=== PATIENT | female | born 1945 | race Caucasian/White ===

== ENCOUNTER → 2016-11-17 | Day surgery (SDC) | payer MEDICARE, OTHER ==
[~2016-11-17] MED LIST: BENZOCAINE ONE 20% MUCOSAL SPRAY.; FEBU80TA2 PO; FURO-68 PO; LEVO137T2 PO; LIDOCAINE 2% TOPICAL JELLY 30GM TUBE. TP ONE; LIDOCAINE 2% VISCOUS 15 ML SOLUTION. ONE; MAG355OR11 PO; MODA200T31 PO; OMEP20CA9 PO; OXYC10TA45 PO; OXYC5CAP PO; PRAV40TA2 PO; ROPI1TAB PO; SPIR50TA2 PO; TRAM50TA PO
[2016-11-17 16:13] VITALS: BP 126/79
--- NOTE | 2016-11-18 00:32 | CONS ---
DATE OF CONSULTATION: 11/17/2016 REASON FOR CONSULTATION: Pickett's. HISTORY OF PRESENT ILLNESS: A 71-year-old female with past medical history of hyperlipidemia, hypertension, and Pickett's and regional enteritis as well as hypothyroidism is seen for surveillance exam for Pickett's. She denies any dysphagia, odynophagia and has had no further bleeding, has been maintained on omeprazole 20 mg daily. PAST MEDICAL HISTORY: Osteoarthrosis, hyperlipidemia, hypertension, myositis, anemia, Pickett's, and Crohn's. ALLERGIES: None. MEDICATIONS: Include Uloric, Lasix, Synthroid, Maalox, Provigil, omeprazole, oxycodone, pravastatin, Requip, spironolactone, and tramadol. SOCIAL HISTORY: She is retired. She does not drink or smoke at this time. FAMILY HISTORY: Noncontributory. PAST SURGICAL HISTORY: Status post tonsillectomy. REVIEW OF SYSTEMS: Per records. PHYSICAL EXAMINATION: VITAL SIGNS: Temperature: She is afebrile, pulse 90, respiratory rate 20. HEENT: Normocephalic and atraumatic. Pupils and extraocular muscles not tested. Sclerae anicteric. NECK: Supple. LUNGS: Clear. CARDIOVASCULAR: Reveals S1, S2 without S3, S4 or appreciable murmur. ABDOMEN: Reveals a soft abdomen, normal bowel sounds, without appreciable splenomegaly. EXTREMITIES: Reveals no cyanosis, clubbing or edema. IMPRESSION: Pickett's surveillance exam is recommended at this time. Risks and benefits of procedure including risk of perforation of the operation were discussed with patient and he is willing to proceed at this time. I thank Nasir Santos for allowing us to consult and participate in the patient's care. PURNIMA GREEN MD DR: ROGELIO/martin JOB#: [id number] / [id number] NASIR Gonzalez
--- NOTE | 2016-11-19 10:25 | PATHOLOGY ---
PATHOLOGY REPORT * * * * * * * * FINAL DIAGNOSIS: Squamous mucosa "distal esophageal biopsy": - Reactive squamous epithelial hyperplasia consistent with esophagitis. - There is no evidence of goblet cell metaplasia, dysplasia or malignancy. ([facility]; 11/19/2016) REPORT ELECTRONICALLY SIGNED BY: Brock Interiano M.D. DATE/TIME: 11/19/2016 10:24 * * * * * * * * GROSS PATHOLOGY: Received in formalin labeled "Jenny Shelby, distal esophagus biopsies," are multiple segments of royal soft tissue measuring from less than 0.1 up to 0.2 cm in maximum dimension. The specimen is submitted entirely in cassette A1. ([facility]; 11/18/16) INITIAL CPT CODE(S): A; 53068 Professional services performed by [facility] [place] [address] Technical services performed by [facility] at [address] [place] [address]. SPECIMEN(S) RECEIVED: A.Distal esophagus biopsy CLINICAL HISTORY: History of Pickett's PATIENT: JENNY SHELBY /AGE: 6 1945 (Age: 71) PATIENT #: [id number] ALT CASE #: SPECIMEN COLLECTION DATE: 11/17/2016 SPECIMEN RECEIVED DATE: 11/18/2016 [facility] - [address] [place] [address] - PHONE: [phone] * * * END OF REPORT * * *
== END | disposition home or self-care (01) ==
LOC: SURG 14:58
PROVIDERS: ATTEND Internal Medicine Gastroenterology
DX: Z87.39 Personal history of other diseases of the musculoskeletal system and connective tissue (principal); K22.70 Barrett's esophagus without dysplasia; I10 Essential (primary) hypertension; K29.50 Unspecified chronic gastritis without bleeding; D64.9 Anemia, unspecified; Z86.69 Personal history of other diseases of the nervous system and sense organs
CPT/HCPCS: 88305

== ENCOUNTER 2018-12-07 15:28 | Inpatient (IN) | payer MEDICARE, OTHER ==
[~2018-12-07] VITALS: Ht 162.6 cm; Wt 134.7 kg
[2018-12-07] VITALS (7 sets, daily range): BP systolic 98–143; BP diastolic 40–83
[~2018-12-07 15:28] MED LIST changes: -BENZOCAINE ONE 20% MUCOSAL SPRAY.; -LIDOCAINE 2% TOPICAL JELLY 30GM TUBE. TP ONE; -LIDOCAINE 2% VISCOUS 15 ML SOLUTION. ONE; +OMEP20CA10 PO; -OMEP20CA9 PO; -OXYC10TA45 PO; +OXYC10TA46 PO; -SPIR50TA2 PO; +SPIR50TA4 PO
[2018-12-07] MEDS ORDERED: MORPHINE SULFATE 4 MG/ML VIAL. IV ONE (15:45)
--- NOTE | 2018-12-07 16:07 | PHYS DOC ---
Past Medical History Past Medical History: Diabetes-Type II, Hypertension Past Surgical History: Tonsillectomy Alcohol Use: None Drug Use: None Adult General Chief Complaint Chief Complaint: TRAUMA ALERT HPI HPI Patient is a 73-year-old female who presents to the emergency department for evaluation. She states she was trying to get into her van, and she slipped when she was getting into her seat, and injured her right ankle. She sustained what appears to be an open fracture, EMS reports that there was significant deformity to the patient's ankle, they gave her about 4 mg of Versed to reposition her and splint her. She states her tetanus is up-to-date. She denies any numbness or weakness. She has a large defect and laceration over the medial aspect of her ankle. She denies any other painful areas or injuries. Palpation and attempted movement worsens her pain. There are no alleviating factors to her symptoms. She did not feel dizzy or lightheaded, and the fall seemed to be mechanical reasons, as the patient lost her balance trying to get into her automobile seat. Review of Systems Review of Systems Constitutional: Denies fever or chills [] Eyes: Denies change in visual acuity, redness, or eye pain [] HENT: Denies nasal congestion or sore throat [] Respiratory: Denies cough or shortness of breath [] Cardiovascular: The patient denies any shortness of breath, chest pain, palpitations, or orthopnea [] GI: Denies abdominal pain, nausea, vomiting, bloody stools or diarrhea [] : Denies dysuria or hematuria [] Musculoskeletal: Denies back pain or joint pain except the right ankle [] Integument: Denies rash or skin lesions [] Neurologic: Denies headache, focal weakness or sensory changes [] Endocrine: Denies polyuria or polydipsia [] All other systems were reviewed and found to be within normal limits, except as documented in this note. Current Medications Current Medications Current Medications Medications (Trade) Dose Ordered Sig/Aury Start Time Stop Time Status Last Admin Dose Admin Cefazolin Sodium 50 ml @ 100 mls/hr 1X ONCE 12/07/18 15:45 12/07/18 16:14 DC 12/07/18 16:30 100 MLS/HR Fentanyl Citrate (Fentanyl 2ml Vial) 50 mcg 1X ONCE 12/07/18 16:45 12/07/18 16:46 Hydromorphone HCl (Dilaudid) 0.5 mg PRN Q10MIN PRN 12/07/18 16:30 12/07/18 22:00 Insulin Human Regular (HumuLIN R VIAL) 5 unit 1X ONCE 12/07/18 16:45 12/07/18 16:46 Morphine Sulfate (Morphine Sulfate) 1 mg PRN Q10MIN PRN 12/07/18 16:30 12/07/18 22:00 Ondansetron HCl (Zofran) 4 mg PRN Q6HRS PRN 12/07/18 16:30 12/07/18 22:00 Prochlorperazine Edisylate (Compazine) 5 mg PACU PRN PRN 12/07/18 16:30 12/07/18 22:00 Ringer's Solution 1,000 ml @ 30 mls/hr Q24H 12/07/18 16:25 12/08/18 04:24 Sodium Chloride 1,000 ml @ 125 mls/hr 1X ONCE 12/07/18 16:30 12/08/18 00:29 Allergies Allergies Allergies Coded Allergies Type Severity Reaction Last Updated Verified No Known Drug Allergies 11/17/16 No Physical Exam Physical Exam Constitutional: Well developed, well nourished, no acute distress, non-toxic appearance. [] HENT: Normocephalic, atraumatic, bilateral external ears normal, oropharynx moist, no oral exudates, nose normal. [] Eyes: PERRLA, EOMI, conjunctiva normal, no discharge. [] Neck: Normal range of motion, no tenderness, supple, no stridor. [] Cardiovascular:Heart rate regular rhythm, no murmur [] Lungs & Thorax: Bilateral breath sounds clear to auscultation [] Abdomen: Bowel sounds normal, soft, no tenderness, no masses, no pulsatile masses. [] Skin: Warm, dry, no erythema, no rash. [] Back: No tenderness, no CVA tenderness. [] Extremities: No tenderness, no cyanosis, no clubbing, ROM intact, no edema. [] Neurologic: Alert and oriented X 3, normal motor function, normal sensory function, no focal deficits noted. [] Psychologic: Affect normal, judgement normal, mood normal. [] Current Patient Data Vital Signs Vital Signs Date Time Temp Pulse Resp B/P (MAP) Pulse Ox O2 Delivery O2 Flow Rate FiO2 12/07/18 15:59 92 14 Nasal Cannula 2.0 12/07/18 15:40 98.2 106/52 (70) 93 98.2 Lab Values Laboratory Tests Test 12/07/18 16:00 White Blood Count 11.1 x10^3/uL (4.0-11.0) H Red Blood Count 3.82 x10^6/uL (3.50-5.40) Hemoglobin 11.5 g/dL (12.0-15.5) L Hematocrit 34.5 % (36.0-47.0) L Mean Corpuscular Volume 90 fL (79-100) Mean Corpuscular Hemoglobin 30 pg (25-35) Mean Corpuscular Hemoglobin Concent 33 g/dL (31-37) Red Cell Distribution Width 13.2 % (11.5-14.5) Platelet Count 216 x10^3/uL (140-400) Neutrophils (%) (Auto) 87 % (31-73) H Lymphocytes (%) (Auto) 7 % (24-48) L Monocytes (%) (Auto) 6 % (0-9) Eosinophils (%) (Auto) 1 % (0-3) Basophils (%) (Auto) 0 % (0-3) Neutrophils # (Auto) 9.6 x10^3/uL (1.8-7.7) H Lymphocytes # (Auto) 0.7 x10^3/uL (1.0-4.8) L Monocytes # (Auto) 0.6 x10^3/uL (0.0-1.1) Eosinophils # (Auto) 0.1 x10^3/uL (0.0-0.7) Basophils # (Auto) 0.0 x10^3/uL (0.0-0.2) Segmented Neutrophils % 81 % (35-66) H Band Neutrophils % 9 % (0-9) Lymphocytes % 5 % (24-48) L Monocytes % 4 % (0-10) Basophils % 1 % (0-3) Platelet Estimate Adequate (ADEQUATE) Large Platelets Few Giant Platelets Occ Prothrombin Time 13.4 SEC (11.7-14.0) Prothrombin Time INR 1.1 (0.8-1.1) Activated Partial Thromboplast Time 30 SEC (24-38) Sodium Level 138 mmol/L (136-145) Potassium Level 5.6 mmol/L (3.5-5.1) H Chloride Level 99 mmol/L (98-107) Carbon Dioxide Level 27 mmol/L (21-32) Anion Gap 12 (6-14) Blood Urea Nitrogen 54 mg/dL (7-20) H Creatinine 1.8 mg/dL (0.6-1.0) H Estimated GFR (Cockcroft-Gault) 27.5 Glucose Level 305 mg/dL (70-99) H Calcium Level 9.5 mg/dL (8.5-10.1) Laboratory Tests 12/07/18 16:00 Laboratory Tests 12/07/18 16:00 EKG EKG []Normal sinus rhythm with a normal rate, normal axis, normal intervals, there are no acute ischemic ST/T changes. Radiology/Procedures Radiology/Procedures []PROCEDURE: ANKLE RIGHT 2V EXAM: Right ankle, 2 views. HISTORY: Fall. Pain. COMPARISON: None. FINDINGS: 2 views of the left ankle are obtained. There is a displaced distal fibular metaphyseal fracture with approximately one half of a shaft width displacement along the fracture line. There is slight deformity of the posterior malleolus, projectional or due to a healed fracture. There is a corticated ossicle inferior to the medial malleolus which may be due to a chronic nonunited fracture fragment. The ankle mortise appears intact. No osteochondral lesion is seen. There is diffuse ankle soft tissue swelling. IMPRESSION: 1. Displaced distal fibular metaphyseal fracture. 2. Suspected chronic nonunited fracture fragment inferior to the medial malleolus. Possible healed posterior malleolar fracture. 2. Diffuse ankle soft tissue swelling. PROCEDURE: TIBIA FIBULA RIGHT 2 view study of the right tibia and fibula Clinical indications: Fall and pain FINDINGS: The distal tibia and fibula are not seen in the AP projection. This area is visualized on the right ankle series. Fracture of the distal right fibula is seen on the ankle series. See that report. The mortise ankle joint appears widened in the lateral view. No lytic process is seen. IMPRESSION: Fracture of distal right fibula seen on the ankle series. See that report. No fracture of the more proximal tibia or fibula is seen. Course & Med Decision Making Course & Med Decision Making Pertinent Labs and Imaging studies reviewed. (See chart for details) []4:30 PM: Patient's condition remains stable. I spoke with Dr. Vance, orthopedics, was evaluated the patient will take her to the operating room. According to EMS, the patient's ankle was greatly deformed after the fall when they picked her up, I suspect that she had an open fracture with protrusion of her joint space to the large wound that is present. She will be treated as an open fracture. The patient will be taken to the operating room this evening, the hospitalist has been contacted and will admit the patient. Dragon Disclaimer Dragon Disclaimer This electronic medical record was generated, in whole or in part, using a voice recognition dictation system. Departure Departure Impression: Primary Impression: Open fracture dislocation of ankle joint Disposition: ADMITTED INPATIENT Admitting Physician: REG Condition: STABLE Referrals: LIAT REILLY (PCP) ROB MANRIQUEZ MD Dec 07, 2018 16:07
[2018-12-07 16:11] LABS: BASO % 0 % (0-3); EOS # 0.1 x10^3/uL (0.0-0.7); EOS % 1 % (0-3); HEMATOCRIT 34.5 % (36.0-47.0); HEMOGLOBIN 11.5 g/dL (12.0-15.5); LYMPH # 0.7 x10^3/uL (1.0-4.8); LYMPH % 7 % (24-48); MEAN CORPUSCULAR HEMOGLOBIN 30 pg (25-35); MEAN CORPUSCULAR HGB CONC 33 g/dL (31-37); MEAN CORPUSCULAR VOLUME 90 fL (79-100); MONO # 0.6 x10^3/uL (0.0-1.1); MONO % 6 % (0-9); NEUT # 9.6 x10^3/uL (1.8-7.7); NEUT % 87 % (31-73); PLATELET COUNT 216 x10^3/uL (140-400); RED BLOOD COUNT 3.82 x10^6/uL (3.50-5.40); RED CELL DISTRIBUTION WIDTH 13.2 % (11.5-14.5); WHITE BLOOD COUNT 11.1 x10^3/uL (4.0-11.0)
[2018-12-07] MEDS ORDERED: IV RINGERS,LACTATED 1000ML 1,000 ML IV SCH (16:25)
[2018-12-07 16:27] LABS: PROTHROMBIN TIME PATIENT 13.4 SEC (11.7-14.0)
[2018-12-07 16:29] LABS: CALCIUM 9.5 mg/dL (8.5-10.1); CREATININE 1.8 mg/dL (0.6-1.0); GFR 27.5; POTASSIUM 5.6 mmol/L (3.5-5.1)
[2018-12-07] MEDS ORDERED: HYDROmorphone 2 MG/ML VIAL IV PRN (16:30)
[2018-12-07] MEDS ORDERED: IV NORMAL SALINE 1000ML BAG 1,000 ML IV ONE (16:30)
[2018-12-07] MEDS ORDERED: MORPHINE SULFATE 2 MG/ML VIAL. IV PRN (16:30)
[2018-12-07] MEDS ORDERED: fentaNYL PF VIAL 100 MCG/2 ML VIAL IV PRN ×2 (16:30)
[2018-12-07] MEDS ORDERED: PROCHLORPERAZINE 10 MG/2 ML VIAL. IV PRN (16:30)
[2018-12-07] MEDS ORDERED: ONDANSETRON PF 4 MG/2 ML VIAL. IV PRN (16:30)
[2018-12-07 16:40] LABS: % BANDS 9 % (0-9); % BASOS 1 % (0-3); % LYMPHS 5 % (24-48); % MONOS 4 % (0-10); % SEGS 81 % (35-66)
[2018-12-07 16:42] LABS: PLT ESTIMATE ADEQUATE (ADEQUATE)
[2018-12-07] MEDS ORDERED: fentaNYL PF VIAL 100 MCG/2 ML VIAL IV ONE (16:45)
[2018-12-07] MEDS ORDERED: INSULIN REGULAR 100 UNIT/ML 3ML VIAL. IV ONE (16:45)
[2018-12-07] MEDS ORDERED: INSULIN LISPRO 100 UNIT/ML 3ML VIAL for OP,RR ONLY. SQ PRN (19:00)
[2018-12-07] MEDS ORDERED: fentaNYL PF VIAL 100 MCG/2 ML VIAL ONE (19:17)
[2018-12-07] MEDS ORDERED: ceFAZolin SODIUM 1 GM VIAL ONE (19:43)
[2018-12-07] MEDS ORDERED: PHENYLEPHRINE 10 MG/ML VIAL. ONE ×2 (20:03)
[2018-12-07] MEDS ORDERED: LIDOCAINE 2% PF 5 ML VIAL. ONE (20:17)
[2018-12-07] MEDS ORDERED: SEVOFLURANE > 120 MINUTES. IH ONE (20:17)
[2018-12-07] MEDS ORDERED: ONDANSETRON PF 4 MG/2 ML VIAL. ONE (20:17)
[2018-12-07] MEDS ORDERED: PROPOFOL 20 ML IV ONE (20:17)
[2018-12-07] MEDS ORDERED: DEXAMETHASONE SOD PHOS 4 MG/ML VIAL ONE (20:17)
--- NOTE | 2018-12-07 22:12 | PDOC4 ---
Operative Note Operative Note Date of surgery: 12/07/2018 Preoperative diagnosis: Open right ankle fracture dislocation Postoperative diagnosis: Same Operative procedure: Irrigation debridement right ankle with fixation lateral malleolus fracture Surgeon: Rajiv Assist: Daysi Anesthesia: Gen. Estimated blood loss: 150 mL Complications: None Operative indications: Please see my emergency Department orthopedic consultation for detailed operative indications Operative text: Patient was identified procedure verified patient placed in the supine position on the operating table. After adequate amounts of general anesthesia were administered the right lower extremity was prepped and draped in standard sterile fashion with a thigh tourniquet. After timeout was performed patient procedure identified and verified it was not inflated and the ankle was opened up through the medial incision and thorough irrigation carried out with normal saline solution and pulse lavage with a total of 1 L bleeding points were controlled by electrocautery and any intervening tissue and deltoid ligament were held aside with the ankle reduced lateral incision was made subperiosteal dissection carried out to the distal fibula which was anatomically reduced and fixated with a Nuris alps plate. Shaft screw was initially placed as were distal locking screws the length and positioning checked under multiple fluoroscopic views and remaining shaft screws were placed with nonlocking screws and anatomic reduction of the ankle joint mortise was noted deltoid ligament was reapproximated with Vicryl suture medial closure accomplished with nylon suture lateral closure accomplished with buried Vicryl suture and skin closure with albert sterile dressings followed by a well-padded sugar tong splint was applied and patient was returned recovery room in stable condition having tolerated procedure well BILL ALEXIS MD Dec 07, 2018 22:12
[2018-12-08] VITALS (9 sets, daily range): BP systolic 90–113; BP diastolic 37–64
[2018-12-08] MEDS: MORPHINE SULFATE 2 MG/ML VIAL. IV PRN ×5 (00:11→23:50)
--- NOTE | 2018-12-08 01:07 | CONS ---
DATE OF CONSULTATION: 12/07/2018 REQUESTING PHYSICIAN: Dr. Longoria. REASON FOR CONSULTATION: Open right ankle fracture dislocation. HISTORY OF PRESENT ILLNESS: The patient is a 73-year-old female who was trying to get into her van, slipped while she was getting into her seat, twisted her right ankle and fell to the ground. Her then tried to help her, but could not lift her up and noticed her bone sticking out of the skin at her ankle and the foot was twisted sideways. She was splinted by EMS and was noted to have a large skin wound over the medial aspect of her ankle. PAST MEDICAL HISTORY: Significant for type 2 diabetes and hypertension. PAST SURGICAL HISTORY: Tonsillectomy. MEDICATIONS: List is reviewed. ALLERGIES: She has no known drug allergies. FAMILY HISTORY: Noncontributory. SOCIAL HISTORY: Had some difficulty getting around prior to this and has a power wheelchair, otherwise ambulated with some assistance, but with increasing difficulty recently. She denies tobacco, alcohol or drug use. REVIEW OF SYSTEMS: No loss of consciousness associated with the fall. No neck or back pain, upper extremity injury, but obvious deformity to the right ankle and denies any focal weakness, numbness, tingling otherwise. PHYSICAL EXAMINATION: VITAL SIGNS: Temperature 98.2, pulse 92, respirations 14, blood pressure 106/52, 93% on 2 liters nasal cannula. HEENT: Atraumatic, normocephalic. HEART: Regular rate and rhythm. LUNGS: Clear to auscultation bilaterally. ABDOMEN: Benign, obese. EXTREMITIES: Examination of the right ankle reveals a large transverse wound over the medial aspect of her ankle and obvious fracture dislocation with gross instability. She has, otherwise, mildly limited motion of the left ankle. Normal alignment, stability of bilateral hips and knees. She can move both shoulders, elbow and wrist bilaterally well with no tenderness on palpation, weakness or instability. Distal sensation, pulses, motor function appear to be intact in both lower extremities. IMAGING: X-rays show a distal fibula fracture with obvious instability and widening of the ankle joint mortise on the right ankle. IMPRESSION: Open right ankle fracture dislocation. TREATMENT PLAN: I went over with her and her the fact that we would undergo emergent washout and fixation of her fibula to stabilize the ankle. Talked about the possibility of increased incidence of infection, stiffness, potentially instability, nerve or blood vessel damage, medical or other anesthetic complications among others and difficulty healing, especially in an increased rate with her diabetes. All her questions were answered. She wishes to proceed with surgical evaluation and treatment, which will again occur emergently this evening. BILL ALEXIS MD DR: JONATHAN/martin JOB#: [id number] / [id number]
[2018-12-08] MEDS ORDERED: FINA5TAB4 PO (02:32)
[2018-12-08] MEDS ORDERED: GLIM2TAB3 PO (02:32)
[2018-12-08] MEDS ORDERED: RAMI5CAP50 PO (02:32)
[2018-12-08] MEDS ORDERED: GABA300C18 PO (02:32)
[2018-12-08] MEDS ORDERED: METF500T16 PO (02:32)
--- NOTE | 2018-12-08 07:39 | EKG ---
[facility] [address] [place] [address] Test Date: 2018-12-07 Test Time: 16:38:14 Pat Name: SWATHI WOODALL Department: Room: 402 1 Gender: F [place]: : 1945 Requested By: ROB MANRIQUEZ Order Number: [id number] Reading MD: Jax Stanley MD Measurements Intervals [place] Rate: 92 P: -12 PA: 164 QRS: 24 QRSD: 74 T: 30 QT: 330 QTc: 413 Interpretive Statements SINUS RHYTHM Electronically Signed On 12-19-2018 14:05:15 CDT by Jax Stanley MD
[2018-12-08] MEDS ORDERED: fentaNYL PF VIAL 100 MCG/2 ML VIAL IV PRN (08:30)
[2018-12-08] MEDS ORDERED: metFORMIN 500 MG TABLET PO PRN (08:30)
[2018-12-08] MEDS ORDERED: IV DEXTROSE 5% 250 ML BAG. IV PRN (08:30)
[2018-12-08] MEDS ORDERED: DEXTROSE 50% 25 GM / 50ML DISP.SYRIN. IV PRN (08:30)
[2018-12-08] MEDS ORDERED: NON FORMULARY ITEM (Spironolactone 1 TAB) PO SCH (09:00)
[2018-12-08] MEDS ORDERED: NON FORMULARY ITEM (Modafinil (Provigil) 200 MG) PO SCH (09:00)
[2018-12-08] MEDS ORDERED: GABAPENTIN 300 MG CAPSULE. PO SCH (09:00)
[2018-12-08] MEDS ORDERED: FLU VAX QS 2019-20 (36MOS+)/PF 0.5 ML SYRINGE. VAX IM ONE (09:00)
[2018-12-08] MEDS ORDERED: RAMIPRIL PO SCH (09:00)
[2018-12-08] MEDS ORDERED: metFORMIN 500 MG TABLET PO SCH (09:15)
[2018-12-08] MEDS: LEVOTHYROXINE 137 MCG TABLET PO SCH (09:20)
[2018-12-08] MEDS: FUROSEMIDE 40 MG TABLET. PO SCH (09:21)
[2018-12-08] MEDS: GLIMEPIRIDE 2 MG TABLET. PO SCH (09:21)
[2018-12-08] MEDS: FINASTERIDE 5 MG TABLET. PO SCH (09:21)
[2018-12-08] MEDS: oxyCODONE ER 10 MG TAB.ER.12H PO SCH ×2 (09:22→21:35)
[2018-12-08 09:27] LABS: BASO % 0 % (0-3); EOS % 0 % (0-3); HEMATOCRIT 30.6 % (36.0-47.0); HEMOGLOBIN 10.3 g/dL (12.0-15.5); LYMPH # 0.7 x10^3/uL (1.0-4.8); LYMPH % 7 % (24-48); MEAN CORPUSCULAR HEMOGLOBIN 31 pg (25-35); MEAN CORPUSCULAR HGB CONC 34 g/dL (31-37); MEAN CORPUSCULAR VOLUME 92 fL (79-100); MONO # 0.5 x10^3/uL (0.0-1.1); MONO % 6 % (0-9); NEUT # 7.8 x10^3/uL (1.8-7.7); NEUT % 86 % (31-73); PLATELET COUNT 187 x10^3/uL (140-400); RED BLOOD COUNT 3.33 x10^6/uL (3.50-5.40); RED CELL DISTRIBUTION WIDTH 13.4 % (11.5-14.5); WHITE BLOOD COUNT 9.1 x10^3/uL (4.0-11.0)
[2018-12-08] MEDS ORDERED: INSULIN LISPRO 300 UNITS/3 ML VIAL. SQ ONE (09:30)
[2018-12-08 09:36] LABS: CALCIUM 8.8 mg/dL (8.5-10.1); CREATININE 1.7 mg/dL (0.6-1.0); GFR 29.4; POTASSIUM 5.8 mmol/L (3.5-5.1)
[2018-12-08] MEDS: FEBUXOSTAT 40 MG TABLET PO SCH (10:00)
--- NOTE | 2018-12-08 11:51 | PDOC1 ---
History and Physical Date of Admission Date of Admission DATE: 12/08/18 TIME: 11:47 Identification/Chief Complaint Chief Complaint Right ankle fracture, open Source Source: Caregiver, Chart review, Patient History of Present Illness History of Present Illness The patient is a 73-year-old female who was trying to get into her van, slipped while she was getting into her seat, twisted her right ankle and fell to the ground. Her then tried to help her, but could not lift her up and noticed her bone sticking out of the skin at her ankle and the foot was twisted sideways. She was splinted by EMS DR Mcdowell has done OR yesterday and i sse pt POD # 1, BS on high side on metformin BID with hgba1c 7 she relays She is interested in rehab Past Medical History Cardiovascular: HTN Endocrine: Diabetes Past Surgical History Past Surgical History: Tonsillectomy Family History Family History: Hypertension Social History Smoke: No ALCOHOL: none Drugs: None Current Problem List Problem List Problems Medical Problems: (1) Open fracture dislocation of ankle joint Status: Acute Current Medications Current Medications Current Medications Morphine Sulfate (Morphine Sulfate) 4 mg 1X ONCE IV ; Start 12/07/18 at 15:45; Stop 12/07/18 at 15:49; Status DC Cefazolin Sodium 50 ml @ 100 mls/hr 1X ONCE IV Last administered on 12/07/18at 16:30; Start 12/07/18 at 15:45; Stop 12/07/18 at 16:14; Status DC Ondansetron HCl (Zofran) 4 mg PRN Q6HRS PRN IV NAUSEA/VOMITING; Start 12/07/18 at 16:30; Stop 12/07/18 at 22:00; Status DC Fentanyl Citrate (Fentanyl 2ml Vial) 25 mcg PRN Q5MIN PRN IV MILD PAIN 1-3; Start 12/07/18 at 16:30; Stop 12/07/18 at 22:00; Status DC Fentanyl Citrate (Fentanyl 2ml Vial) 50 mcg PRN Q5MIN PRN IV MODERATE TO SEVERE PAIN; Start 12/07/18 at 16:30; Stop 12/07/18 at 22:00; Status DC Morphine Sulfate (Morphine Sulfate) 1 mg PRN Q10MIN PRN IV SEVERE PAIN 7-10; Start 12/07/18 at 16:30; Stop 12/07/18 at 22:00; Status DC Ringer's Solution 1,000 ml @ 30 mls/hr Q24H IV ; Start 12/07/18 at 16:25; Stop 12/08/18 at 04:24; Status DC Hydromorphone HCl (Dilaudid) 0.5 mg PRN Q10MIN PRN IV SEV PAIN, Second choice; Start 12/07/18 at 16:30; Stop 12/07/18 at 22:00; Status DC Prochlorperazine Edisylate (Compazine) 5 mg PACU PRN PRN IV NAUSEA, MRX1; Start 12/07/18 at 16:30; Stop 12/07/18 at 22:00; Status DC Sodium Chloride 1,000 ml @ 125 mls/hr 1X ONCE IV Last administered on 12/07/18at 16:47; Start 12/07/18 at 16:30; Stop 12/08/18 at 00:29; Status DC Insulin Human Regular (HumuLIN R VIAL) 5 unit 1X ONCE IV Last administered on 12/07/18at 16:46; Start 12/07/18 at 16:45; Stop 12/07/18 at 16:46; Status DC Fentanyl Citrate (Fentanyl 2ml Vial) 50 mcg 1X ONCE IV Last administered on 12/07/18at 16:43; Start 12/07/18 at 16:45; Stop 12/07/18 at 16:46; Status DC Insulin Human Lispro (HumaLOG VIAL for OP,RR ONLY) 0-10 units PRN Q1HR PRN SQ PER PROTOCOL Last administered on 12/07/18at 18:57; Start 12/07/18 at 19:00; Sto p 12/08/18 at 18:59 Cefazolin Sodium 50 ml @ 100 mls/hr 1X PREOP ONCE IV ; Start 12/07/18 at 19:15; Stop 12/07/18 at 19:44; Status DC Fentanyl Citrate (Fentanyl 2ml Vial) 100 mcg STK-MED ONCE .ROUTE ; Start 12/07/18 at 19:17; Stop 12/07/18 at 19:17; Status DC Cefazolin Sodium (Ancef) 1 gm STK-MED ONCE .ROUTE ; Start 12/07/18 at 19:43; Stop 12/07/18 at 19:43; Status DC Phenylephrine HCl (Dex-Synephrine Inj) 10 mg STK-MED ONCE .ROUTE ; Start 12/07/18 at 20:03; Stop 12/07/18 at 20:03; Status DC Phenylephrine HCl (Dex-Synephrine Inj) 10 mg STK-MED ONCE .ROUTE ; Start 12/07/18 at 20:03; Stop 12/07/18 at 20:03; Status DC Propofol 20 ml @ As Directed STK-MED ONCE IV ; Start 12/07/18 at 20:17; Stop 12/07/18 at 20:17; Status DC Dexamethasone Sodium Phosphate (Decadron) 4 mg STK-MED ONCE .ROUTE ; Start 12/07/18 at 20:17; Stop 12/07/18 at 20:17; Status DC Lidocaine HCl (Lidocaine Pf 2% Vial) 5 ml STK-MED ONCE .ROUTE ; Start 12/07/18 at 20:17; Stop 12/07/18 at 20:17; Status DC Ondansetron HCl (Zofran) 4 mg STK-MED ONCE .ROUTE ; Start 12/07/18 at 20:17; Stop 12/07/18 at 20:17; Status DC Sevoflurane (Ultane) 90 ml STK-MED ONCE IH ; Start 12/07/18 at 20:17; Stop 12/07/18 at 20:18; Status DC Morphine Sulfate (Morphine Sulfate) 2 mg PRN Q2HR PRN IV MODERATE PAIN 4-6 Last administered on 12/08/18at 00:11; Start 12/07/18 at 23:45 Morphine Sulfate (Morphine Sulfate) 4 mg PRN Q2HR PRN IV SEVERE PAIN 7-10 Last administered on 12/08/18at 07:13; Start 12/07/18 at 23:45 Influenza Virus Vaccine Quadrival (Afluria Quad 2019-20 (3yr Up) Syringe) 0.5 ml ONCE ONCE VAX IM Last administered on 12/08/18at 09:26; Start 12/08/18 at 09:00; Stop 12/08/18 at 09:05; Status DC Fentanyl Citrate (Fentanyl 2ml Vial) 50 mcg PRN Q2HR PRN IV MODERATE TO SEVERE PAIN; Start 12/08/18 at 08:30 Oxycodone/ Acetaminophen (Percocet 5/325) 1 tab PRN Q4HRS PRN PO MODERATE TO SEVERE PAIN; Start 12/08/18 at 08:30 Insulin Human Lispro (HumaLOG) 0-9 UNITS TIDWMEALS SQ ; Start 12/08/18 at 12:00 Dextrose (Dextrose 50%-Water Syringe) 12.5 gm PRN Q15MIN PRN IV SEE COMMENTS; Start 12/08/18 at 08:30 Dextrose 250 ml PRN Q15MIN PRN IV SEE COMMENTS; Start 12/08/18 at 08:30; Status UNV Finasteride (Proscar) 5 mg DAILY PO Last administered on 12/08/18at 09:21; Start 12/08/18 at 09:00 Furosemide (Lasix) 40 mg DAILY PO Last administered on 12/08/18at 09:21; Start 12/08/18 at 09:00 Gabapentin (Neurontin) 300 mg TID PO Last administered on 12/08/18at 09:21; Start 12/08/18 at 09:00 Glimepiride (Amaryl) 2 mg DAILY PO Last administered on 12/08/18at 09:21; Start 12/08/18 at 09:00 Levothyroxine Sodium (Synthroid) 137 mcg DAILY06 PO Last administered on 12/08/18at 09:20; Start 12/08/18 at 10:30 Metformin HCl (Glucophage) 500 mg BID PRN PO Diabetes Mellitus; Start 12/08/18 at 08:30; Stop 12/08/18 at 09:06; Status DC Oxycodone HCl (OxyCONTIN) 10 mg BID PO Last administered on 12/08/18at 09:22; Start 12/08/18 at 10:00 Ropinirole HCl (Requip) 1 mg QHS PO ; Start 12/08/18 at 21:00 Tramadol HCl (Ultram) 50 mg PRN Q6HRS PRN PO MILD TO MODERATE PAIN; Start 12/08/18 at 08:30 Febuxostat (Uloric) 40 mg DAILY PO ; Start 12/08/18 at 10:00 Non-Formulary Medication (Modafinil (Provigil)) 200 mg DAILY PO ; Start 12/08/18 at 09:00; Stop 12/08/18 at 09:16; Status DC Pantoprazole Sodium (Protonix) 40 mg DAILYAC PO ; Start 12/08/18 at 11:30 Atorvastatin Calcium (Lipitor) 10 mg QHS PO ; Start 12/08/18 at 21:00 Non-Formulary Medication (Ramipril ) 1 cap DAILY PO ; Start 12/08/18 at 09:00; Stop 12/08/18 at 08:25; Status DC Non-Formulary Medication (Spironolactone ) 1 tab DAILY PO ; Start 12/08/18 at 09:00; Stop 12/08/18 at 08:25; Status DC Metformin HCl (Glucophage) 500 mg BIDWMEALS PO ; Start 12/08/18 at 09:15; Status Cancel Insulin Human Lispro (HumaLOG) 20 units 1X ONCE SQ Last administered on 12/08/18at 09:30; Start 12/08/18 at 09:30; Stop 12/08/18 at 09:35; Status DC Active Scripts Active Reported Glimepiride 2 Mg Tablet 1 Tab PO DAILY Finasteride 5 Mg Tablet 5 Mg PO DAILY Gabapentin 300 Mg Capsule 300 Mg PO TID Ramipril 5 Mg Capsule 1 Cap PO DAILY Metformin Hcl 500 Mg Tablet 500 Mg PO BID PRN Maalox Advanced Suspension (Mag Hydrox/Aluminum Hyd/Simeth) 355 Ml Oral.susp 355 Ml PO Provigil (Modafinil) 200 Mg Tablet 200 Mg PO DAILY Requip (Ropinirole Hcl) 1 Mg Tablet 1 Tab PO QHS Pravastatin Sodium 40 Mg Tablet 1 Tab PO QHS Uloric (Febuxostat) 80 Mg Tablet 1 Tab PO DAILY Oxycontin (Oxycodone HCl) 10 Mg Tab.er.12h 10 Mg PO BID Oxycodone Hcl 5 Mg Capsule 1 Cap PO TID Spironolactone 50 Mg Tablet 1 Tab PO DAILY Lasix (Furosemide) 40 Mg Tablet 1 Tab PO DAILY Synthroid (Levothyroxine Sodium) 137 Mcg Tablet 1 Tab PO DAILY Tramadol Hcl 50 Mg Tablet 1 Tab PO PRN Q6HRS Omeprazole 20 Mg Capsule.dr 1 Cap PO DAILY Allergies Allergies: Coded Allergies: No Known Drug Allergies (Unverified , 12/07/18) ROS Review of System Right ankle postop soreness otherwise rest of ROS 14 point negative Physical Exam General: Alert, Oriented X3, Cooperative, No acute distress HEENT: Atraumatic, PERRLA, EOMI Lungs: Clear to auscultation, Normal air movement Heart: S1S2, RRR, no thrills, no rubs, no gallops, no murmurs Cardiovascular: S1, S2 Breasts: Normal, Rt breast nml w/o mass, Lt breast nml w/o mass, Nipples normal Abdomen: Normal bowel sounds, Soft, No tenderness, No hepatosplenomegaly, No masses Rectal Exam: not examined Extremities: No clubbing, No cyanosis, Normal pulses, Other (right ankle dressing/soft cast) Skin: No rashes, No breakdown Neuro: Normal gait, Normal speech, Strength at 5/5 X4 ext, Normal tone, Sensa tion intact, Cranial nerves 3-12 NL, Reflexes 2+ Psych/Mental Status: Mental status NL, Mood NL Vitals Vitals Vital Signs Date Time Temp Pulse Resp B/P (MAP) Pulse Ox O2 Delivery O2 Flow Rate FiO2 12/08/18 10:52 97.5 80 20 90/48 (62) 91 Nasal Cannula 2.0 97.5 Labs Labs Laboratory Tests Test 12/07/18 16:00 12/07/18 18:50 12/07/18 20:58 12/08/18 08:13 White Blood Count 11.1 x10^3/uL (4.0-11.0) Red Blood Count 3.82 x10^6/uL (3.50-5.40) Hemoglobin 11.5 g/dL (12.0-15.5) Hematocrit 34.5 % (36.0-47.0) Mean Corpuscular Volume 90 fL (79-100) Mean Corpuscular Hemoglobin 30 pg (25-35) Mean Corpuscular Hemoglobin Concent 33 g/dL (31-37) Red Cell Distribution Width 13.2 % (11.5-14.5) Platelet Count 216 x10^3/uL (140-400) Neutrophils (%) (Auto) 87 % (31-73) Lymphocytes (%) (Auto) 7 % (24-48) Monocytes (%) (Auto) 6 % (0-9) Eosinophils (%) (Auto) 1 % (0-3) Basophils (%) (Auto) 0 % (0-3) Neutrophils # (Auto) 9.6 x10^3/uL (1.8-7.7) Lymphocytes # (Auto) 0.7 x10^3/uL (1.0-4.8) Monocytes # (Auto) 0.6 x10^3/uL (0.0-1.1) Eosinophils # (Auto) 0.1 x10^3/uL (0.0-0.7) Basophils # (Auto) 0.0 x10^3/uL (0.0-0.2) Segmented Neutrophils % 81 % (35-66) Band Neutrophils % 9 % (0-9) Lymphocytes % 5 % (24-48) Monocytes % 4 % (0-10) Basophils % 1 % (0-3) Platelet Estimate Adequate (ADEQUATE) Large Platelets Few Giant Platelets Occ Prothrombin Time 13.4 SEC (11.7-14.0) Prothromb Time International Ratio 1.1 (0.8-1.1) Activated Partial Thromboplast Time 30 SEC (24-38) Sodium Level 138 mmol/L (136-145) Potassium Level 5.6 mmol/L (3.5-5.1) Chloride Level 99 mmol/L (98-107) Carbon Dioxide Level 27 mmol/L (21-32) Anion Gap 12 (6-14) Blood Urea Nitrogen 54 mg/dL (7-20) Creatinine 1.8 mg/dL (0.6-1.0) Estimated GFR (Cockcroft-Gault) 27.5 Glucose Level 305 mg/dL (70-99) Calcium Level 9.5 mg/dL (8.5-10.1) Glucose (Fingerstick) 229 mg/dL (70-99) 178 mg/dL (70-99) 410 mg/dL (70-99) Test 12/08/18 09:15 White Blood Count 9.1 x10^3/uL (4.0-11.0) Red Blood Count 3.33 x10^6/uL (3.50-5.40) Hemoglobin 10.3 g/dL (12.0-15.5) Hematocrit 30.6 % (36.0-47.0) Mean Corpuscular Volume 92 fL (79-100) Mean Corpuscular Hemoglobin 31 pg (25-35) Mean Corpuscular Hemoglobin Concent 34 g/dL (31-37) Red Cell Distribution Width 13.4 % (11.5-14.5) Platelet Count 187 x10^3/uL (140-400) Neutrophils (%) (Auto) 86 % (31-73) Lymphocytes (%) (Auto) 7 % (24-48) Monocytes (%) (Auto) 6 % (0-9) Eosinophils (%) (Auto) 0 % (0-3) Basophils (%) (Auto) 0 % (0-3) Neutrophils # (Auto) 7.8 x10^3/uL (1.8-7.7) Lymphocytes # (Auto) 0.7 x10^3/uL (1.0-4.8) Monocytes # (Auto) 0.5 x10^3/uL (0.0-1.1) Eosinophils # (Auto) 0.0 x10^3/uL (0.0-0.7) Basophils # (Auto) 0.0 x10^3/uL (0.0-0.2) Sodium Level 135 mmol/L (136-145) Potassium Level 5.8 mmol/L (3.5-5.1) Chloride Level 99 mmol/L (98-107) Carbon Dioxide Level 28 mmol/L (21-32) Anion Gap 8 (6-14) Blood Urea Nitrogen 55 mg/dL (7-20) Creatinine 1.7 mg/dL (0.6-1.0) Estimated GFR (Cockcroft-Gault) 29.4 Glucose Level 459 mg/dL (70-99) Calcium Level 8.8 mg/dL (8.5-10.1) 25-Hydroxy Vitamin D Total 47.2 ng/mL (30-100) Laboratory Tests Test 12/07/18 16:00 12/07/18 18:50 12/07/18 20:58 12/08/18 08:13 White Blood Count 11.1 x10^3/uL (4.0-11.0) Red Blood Count 3.82 x10^6/uL (3.50-5.40) Hemoglobin 11.5 g/dL (12.0-15.5) Hematocrit 34.5 % (36.0-47.0) Mean Corpuscular Volume 90 fL (79-100) Mean Corpuscular Hemoglobin 30 pg (25-35) Mean Corpuscular Hemoglobin Concent 33 g/dL (31-37) Red Cell Distribution Width 13.2 % (11.5-14.5) Platelet Count 216 x10^3/uL (140-400) Neutrophils (%) (Auto) 87 % (31-73) Lymphocytes (%) (Auto) 7 % (24-48) Monocytes (%) (Auto) 6 % (0-9) Eosinophils (%) (Auto) 1 % (0-3) Basophils (%) (Auto) 0 % (0-3) Neutrophils # (Auto) 9.6 x10^3/uL (1.8-7.7) Lymphocytes # (Auto) 0.7 x10^3/uL (1.0-4.8) Monocytes # (Auto) 0.6 x10^3/uL (0.0-1.1) Eosinophils # (Auto) 0.1 x10^3/uL (0.0-0.7) Basophils # (Auto) 0.0 x10^3/uL (0.0-0.2) Segmented Neutrophils % 81 % (35-66) Band Neutrophils % 9 % (0-9) Lymphocytes % 5 % (24-48) Monocytes % 4 % (0-10) Basophils % 1 % (0-3) Platelet Estimate Adequate (ADEQUATE) Large Platelets Few Giant Platelets Occ Prothrombin Time 13.4 SEC (11.7-14.0) Prothromb Time International Ratio 1.1 (0.8-1.1) Activated Partial Thromboplast Time 30 SEC (24-38) Sodium Level 138 mmol/L (136-145) Potassium Level 5.6 mmol/L (3.5-5.1) Chloride Level 99 mmol/L (98-107) Carbon Dioxide Level 27 mmol/L (21-32) Anion Gap 12 (6-14) Blood Urea Nitrogen 54 mg/dL (7-20) Creatinine 1.8 mg/dL (0.6-1.0) Estimated GFR (Cockcroft-Gault) 27.5 Glucose Level 305 mg/dL (70-99) Calcium Level 9.5 mg/dL (8.5-10.1) Glucose (Fingerstick) 229 mg/dL (70-99) 178 mg/dL (70-99) 410 mg/dL (70-99) Test 12/08/18 09:15 White Blood Count 9.1 x10^3/uL (4.0-11.0) Red Blood Count 3.33 x10^6/uL (3.50-5.40) Hemoglobin 10.3 g/dL (12.0-15.5) Hematocrit 30.6 % (36.0-47.0) Mean Corpuscular Volume 92 fL (79-100) Mean Corpuscular Hemoglobin 31 pg (25-35) Mean Corpuscular Hemoglobin Concent 34 g/dL (31-37) Red Cell Distribution Width 13.4 % (11.5-14.5) Platelet Count 187 x10^3/uL (140-400) Neutrophils (%) (Auto) 86 % (31-73) Lymphocytes (%) (Auto) 7 % (24-48) Monocytes (%) (Auto) 6 % (0-9) Eosinophils (%) (Auto) 0 % (0-3) Basophils (%) (Auto) 0 % (0-3) Neutrophils # (Auto) 7.8 x10^3/uL (1.8-7.7) Lymphocytes # (Auto) 0.7 x10^3/uL (1.0-4.8) Monocytes # (Auto) 0.5 x10^3/uL (0.0-1.1) Eosinophils # (Auto) 0.0 x10^3/uL (0.0-0.7) Basophils # (Auto) 0.0 x10^3/uL (0.0-0.2) Sodium Level 135 mmol/L (136-145) Potassium Level 5.8 mmol/L (3.5-5.1) Chloride Level 99 mmol/L (98-107) Carbon Dioxide Level 28 mmol/L (21-32) Anion Gap 8 (6-14) Blood Urea Nitrogen 55 mg/dL (7-20) Creatinine 1.7 mg/dL (0.6-1.0) Estimated GFR (Cockcroft-Gault) 29.4 Glucose Level 459 mg/dL (70-99) Calcium Level 8.8 mg/dL (8.5-10.1) 25-Hydroxy Vitamin D Total 47.2 ng/mL (30-100) VTE Prophylaxis Ordered VTE Prophylaxis Devices: Yes VTE Pharmacological Prophylaxi: Yes Assessment/Plan Assessment/Plan Right ankle open dislocation-mechanical fall traumatic Diabetes type 2 hemoglobin A1c 7 Obesity, BMI 51 Hypertension hx butNOW borderline hypotensive Plan: med surg floor, check labs postop and vitamin D levels Pain control 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
[2018-12-08] MEDS: AMOXICILLIN/K CLAV 500/125MG TABLET. PO SCH ×2 (12:04→21:35)
[2018-12-08] MEDS: PANTOPRAZOLE 40 MG TABLET.DR. PO SCH (12:04)
[2018-12-08] MEDS: INSULIN LISPRO 300 UNITS/3 ML VIAL. SQ SCH ×2 (12:20→17:29)
--- NOTE | 2018-12-08 13:21 | NUR ---
SS following for discharge planning. SS reviewed pt chart. Pt is from home and is currently requiring oxygen. SS will continue to follow for discharge planning.
[2018-12-08] MEDS: GABAPENTIN 300 MG CAPSULE. PO SCH ×2 (14:50→21:36)
[2018-12-08] MEDS: rOPINIRole 1 MG TABLET. PO SCH (21:35)
[2018-12-08] MEDS: ATORVASTATIN CALCIUM 10 MG TABLET. PO SCH (21:36)
[2018-12-09 00:11] LABS: HEMOGLOBIN A1C 9.8 % (4.8-5.6)
[2018-12-09] MEDS ORDERED: INSULIN LISPRO 300 UNITS/3 ML VIAL. SQ ONE (01:30)
[2018-12-09 03:00] VITALS: BP 116/56
[2018-12-09 07:00] VITALS: BP 117/47
[2018-12-09] MEDS: PANTOPRAZOLE 40 MG TABLET.DR. PO SCH (07:13)
[2018-12-09] MEDS: LEVOTHYROXINE 137 MCG TABLET PO SCH (07:13)
[2018-12-09] MEDS: GABAPENTIN 300 MG CAPSULE. PO SCH ×3 (08:06→19:56)
[2018-12-09] MEDS: AMOXICILLIN/K CLAV 500/125MG TABLET. PO SCH ×2 (08:06→19:56)
[2018-12-09] MEDS: FEBUXOSTAT 40 MG TABLET PO SCH (08:07)
[2018-12-09] MEDS: oxyCODONE ER 10 MG TAB.ER.12H PO SCH ×2 (08:07→19:56)
[2018-12-09] MEDS: FINASTERIDE 5 MG TABLET. PO SCH (08:07)
[2018-12-09] MEDS: FUROSEMIDE 40 MG TABLET. PO SCH (08:07)
[2018-12-09] MEDS: GLIMEPIRIDE 2 MG TABLET. PO SCH (08:07)
[2018-12-09] MEDS: MORPHINE SULFATE 2 MG/ML VIAL. IV PRN ×3 (08:08→15:21)
[2018-12-09] MEDS: INSULIN LISPRO 300 UNITS/3 ML VIAL. SQ SCH ×3 (08:12→17:20)
[2018-12-09] MEDS ORDERED: INSULIN GLARGINE SYRINGE. SQ STA (08:49)
[2018-12-09] MEDS: LACTOBACILLUS RHAMNOSUS GG 1 CAPSULE. PO SCH ×2 (10:03→19:56)
[2018-12-09 11:00] VITALS: BP 112/39
--- NOTE | 2018-12-09 12:15 | PDOC ---
PROGRESS NOTES Chief Complaint Chief Complaint Right ankle open dislocation-mechanical fall traumatic Diabetes type 2 hemoglobin A1c 7 Obesity, BMI 51 Hypertension hx but NOW borderline hypotensive History of Present Illness History of Present Illness BS high! Hgba1c 7 though BP systolic 1 teens - without resumption of 2 home bp meds AGreeable to [facility] - looking at Taryn kaur CReat 1,4 in thsi DM PLAN: I held off ivf re scott Start lantus 20 qhs LAntus 10 units SQ x 1 now Keep glyburide Cant do metformin bec of creat Taryn kaur on dc FULL CODE OK to use own aspercreme lotion Vitals Vitals Vital Signs Date Time Temp Pulse Resp B/P (MAP) Pulse Ox O2 Delivery O2 Flow Rate FiO2 12/09/18 11:00 98.2 85 20 112/39 (63) 94 Room Air 98.2 12/09/18 08:08 2.0 Physical Exam General: Alert, Oriented X3, Cooperative, No acute distress Abdomen: Normal bowel sounds, Soft, No tenderness, No hepatosplenomegaly, No masses Extremities: No clubbing, No cyanosis, Normal pulses, Other (right ankle dressing/soft cast) Skin: No rashes, No breakdown Labs LABS Laboratory Tests Test 12/08/18 16:45 12/09/18 00:59 Glucose (Fingerstick) 231 mg/dL (70-99) 313 mg/dL (70-99) Review of Systems Review of Systems post op pain, all else 14 pt neg Assessment and Plan Assessmemt and Plan Problems Medical Problems: (1) Open fracture dislocation of ankle joint Status: Acute Comment Review of Relevant I have reviewed the following items renae (where applicable) has been applied. Labs Laboratory Tests Test 12/07/18 16:00 12/07/18 18:50 12/07/18 20:58 12/08/18 08:13 White Blood Count 11.1 x10^3/uL (4.0-11.0) Red Blood Count 3.82 x10^6/uL (3.50-5.40) Hemoglobin 11.5 g/dL (12.0-15.5) Hematocrit 34.5 % (36.0-47.0) Mean Corpuscular Volume 90 fL (79-100) Mean Corpuscular Hemoglobin 30 pg (25-35) Mean Corpuscular Hemoglobin Concent 33 g/dL (31-37) Red Cell Distribution Width 13.2 % (11.5-14.5) Platelet Count 216 x10^3/uL (140-400) Neutrophils (%) (Auto) 87 % (31-73) Lymphocytes (%) (Auto) 7 % (24-48) Monocytes (%) (Auto) 6 % (0-9) Eosinophils (%) (Auto) 1 % (0-3) Basophils (%) (Auto) 0 % (0-3) Neutrophils # (Auto) 9.6 x10^3/uL (1.8-7.7) Lymphocytes # (Auto) 0.7 x10^3/uL (1.0-4.8) Monocytes # (Auto) 0.6 x10^3/uL (0.0-1.1) Eosinophils # (Auto) 0.1 x10^3/uL (0.0-0.7) Basophils # (Auto) 0.0 x10^3/uL (0.0-0.2) Segmented Neutrophils % 81 % (35-66) Band Neutrophils % 9 % (0-9) Lymphocytes % 5 % (24-48) Monocytes % 4 % (0-10) Basophils % 1 % (0-3) Platelet Estimate Adequate (ADEQUATE) Large Platelets Few Giant Platelets Occ Prothrombin Time 13.4 SEC (11.7-14.0) Prothromb Time International Ratio 1.1 (0.8-1.1) Activated Partial Thromboplast Time 30 SEC (24-38) Sodium Level 138 mmol/L (136-145) Potassium Level 5.6 mmol/L (3.5-5.1) Chloride Level 99 mmol/L (98-107) Carbon Dioxide Level 27 mmol/L (21-32) Anion Gap 12 (6-14) Blood Urea Nitrogen 54 mg/dL (7-20) Creatinine 1.8 mg/dL (0.6-1.0) Estimated GFR (Cockcroft-Gault) 27.5 Glucose Level 305 mg/dL (70-99) Calcium Level 9.5 mg/dL (8.5-10.1) Glucose (Fingerstick) 229 mg/dL (70-99) 178 mg/dL (70-99) 410 mg/dL (70-99) Test 12/08/18 09:15 12/08/18 11:41 12/08/18 16:45 12/09/18 00:59 White Blood Count 9.1 x10^3/uL (4.0-11.0) Red Blood Count 3.33 x10^6/uL (3.50-5.40) Hemoglobin 10.3 g/dL (12.0-15.5) Hematocrit 30.6 % (36.0-47.0) Mean Corpuscular Volume 92 fL (79-100) Mean Corpuscular Hemoglobin 31 pg (25-35) Mean Corpuscular Hemoglobin Concent 34 g/dL (31-37) Red Cell Distribution Width 13.4 % (11.5-14.5) Platelet Count 187 x10^3/uL (140-400) Neutrophils (%) (Auto) 86 % (31-73) Lymphocytes (%) (Auto) 7 % (24-48) Monocytes (%) (Auto) 6 % (0-9) Eosinophils (%) (Auto) 0 % (0-3) Basophils (%) (Auto) 0 % (0-3) Neutrophils # (Auto) 7.8 x10^3/uL (1.8-7.7) Lymphocytes # (Auto) 0.7 x10^3/uL (1.0-4.8) Monocytes # (Auto) 0.5 x10^3/uL (0.0-1.1) Eosinophils # (Auto) 0.0 x10^3/uL (0.0-0.7) Basophils # (Auto) 0.0 x10^3/uL (0.0-0.2) Sodium Level 135 mmol/L (136-145) Potassium Level 5.8 mmol/L (3.5-5.1) Chloride Level 99 mmol/L (98-107) Carbon Dioxide Level 28 mmol/L (21-32) Anion Gap 8 (6-14) Blood Urea Nitrogen 55 mg/dL (7-20) Creatinine 1.7 mg/dL (0.6-1.0) Estimated GFR (Cockcroft-Gault) 29.4 Glucose Level 459 mg/dL (70-99) Hemoglobin A1c 9.8 % (4.8-5.6) Calcium Level 8.8 mg/dL (8.5-10.1) 25-Hydroxy Vitamin D Total 47.2 ng/mL (30-100) Glucose (Fingerstick) 331 mg/dL (70-99) 231 mg/dL (70-99) 313 mg/dL (70-99) Laboratory Tests Test 12/08/18 16:45 12/09/18 00:59 Glucose (Fingerstick) 231 mg/dL (70-99) 313 mg/dL (70-99) Medications Current Medications Morphine Sulfate (Morphine Sulfate) 4 mg 1X ONCE IV ; Start 12/07/18 at 15:45; Stop 12/07/18 at 15:49; Status DC Cefazolin Sodium 50 ml @ 100 mls/hr 1X ONCE IV Last administered on 12/07/18at 16:30; Start 12/07/18 at 15:45; Stop 12/07/18 at 16:14; Status DC Ondansetron HCl (Zofran) 4 mg PRN Q6HRS PRN IV NAUSEA/VOMITING; Start 12/07/18 at 16:30; Stop 12/07/18 at 22:00; Status DC Fentanyl Citrate (Fentanyl 2ml Vial) 25 mcg PRN Q5MIN PRN IV MILD PAIN 1-3; Start 12/07/18 at 16:30; Stop 12/07/18 at 22:00; Status DC Fentanyl Citrate (Fentanyl 2ml Vial) 50 mcg PRN Q5MIN PRN IV MODERATE TO SEVERE PAIN; Start 12/07/18 at 16:30; Stop 12/07/18 at 22:00; Status DC Morphine Sulfate (Morphine Sulfate) 1 mg PRN Q10MIN PRN IV SEVERE PAIN 7-10; Start 12/07/18 at 16:30; Stop 12/07/18 at 22:00; Status DC Ringer's Solution 1,000 ml @ 30 mls/hr Q24H IV ; Start 12/07/18 at 16:25; Stop 12/08/18 at 04:24; Status DC Hydromorphone HCl (Dilaudid) 0.5 mg PRN Q10MIN PRN IV SEV PAIN, Second choice; Start 12/07/18 at 16:30; Stop 12/07/18 at 22:00; Status DC Prochlorperazine Edisylate (Compazine) 5 mg PACU PRN PRN IV NAUSEA, MRX1; Start 12/07/18 at 16:30; Stop 12/07/18 at 22:00; Status DC Sodium Chloride 1,000 ml @ 125 mls/hr 1X ONCE IV Last administered on 12/07/18at 16:47; Start 12/07/18 at 16:30; Stop 12/08/18 at 00:29; Status DC Insulin Human Regular (HumuLIN R VIAL) 5 unit 1X ONCE IV Last administered on 12/07/18at 16:46; Start 12/07/18 at 16:45; Stop 12/07/18 at 16:46; Status DC Fentanyl Citrate (Fentanyl 2ml Vial) 50 mcg 1X ONCE IV Last administered on 12/07/18at 16:43; Start 12/07/18 at 16:45; Stop 12/07/18 at 16:46; Status DC Insulin Human Lispro (HumaLOG VIAL for OP,RR ONLY) 0-10 units PRN Q1HR PRN SQ PER PROTOCOL Last administered on 12/07/18at 18:57; Start 12/07/18 at 19:00; Stop 12/08/18 at 18:59; Status DC Cefazolin Sodium 50 ml @ 100 mls/hr 1X PREOP ONCE IV ; Start 12/07/18 at 19:15; Stop 12/07/18 at 19:44; Status DC Fentanyl Citrate (Fentanyl 2ml Vial) 100 mcg STK-MED ONCE .ROUTE ; Start 12/07/18 at 19:17; Stop 12/07/18 at 19:17; Status DC Cefazolin Sodium (Ancef) 1 gm STK-MED ONCE .ROUTE ; Start 12/07/18 at 19:43; Stop 12/07/18 at 19:43; Status DC Phenylephrine HCl (Dex-Synephrine Inj) 10 mg STK-MED ONCE .ROUTE ; Start 12/07/18 at 20:03; Stop 12/07/18 at 20:03; Status DC Phenylephrine HCl (Dex-Synephrine Inj) 10 mg STK-MED ONCE .ROUTE ; Start 12/07/18 at 20:03; Stop 12/07/18 at 20:03; Status DC Propofol 20 ml @ As Directed STK-MED ONCE IV ; Start 12/07/18 at 20:17; Stop 12/07/18 at 20:17; Status DC Dexamethasone Sodium Phosphate (Decadron) 4 mg STK-MED ONCE .ROUTE ; Start 12/07/18 at 20:17; Stop 12/07/18 at 20:17; Status DC Lidocaine HCl (Lidocaine Pf 2% Vial) 5 ml STK-MED ONCE .ROUTE ; Start 12/07/18 at 20:17; Stop 12/07/18 at 20:17; Status DC Ondansetron HCl (Zofran) 4 mg STK-MED ONCE .ROUTE ; Start 12/07/18 at 20:17; Stop 12/07/18 at 20:17; Status DC Sevoflurane (Ultane) 90 ml STK-MED ONCE IH ; Start 12/07/18 at 20:17; Stop 12/07/18 at 20:18; Status DC Morphine Sulfate (Morphine Sulfate) 2 mg PRN Q2HR PRN IV MODERATE PAIN 4-6 Last administered on 12/09/18at 08:08; Start 12/07/18 at 23:45 Morphine Sulfate (Morphine Sulfate) 4 mg PRN Q2HR PRN IV SEVERE PAIN 7-10 Last administered on 12/08/18at 07:13; Start 12/07/18 at 23:45 Influenza Virus Vaccine Quadrival (Afluria Quad 2019-20 (3yr Up) Syringe) 0.5 ml ONCE ONCE VAX IM Last administered on 12/08/18at 09:26; Start 12/08/18 at 09:00; Stop 12/08/18 at 09:05; Status DC Fentanyl Citrate (Fentanyl 2ml Vial) 50 mcg PRN Q2HR PRN IV MODERATE TO SEVERE PAIN; Start 12/08/18 at 08:30 Oxycodone/ Acetaminophen (Percocet 5/325) 1 tab PRN Q4HRS PRN PO MODERATE TO SEVERE PAIN; Start 12/08/18 at 08:30 Insulin Human Lispro (HumaLOG) 0-9 UNITS TIDWMEALS SQ Last administered on 12/09/18at 08:12; Start 12/08/18 at 12:00 Dextrose (Dextrose 50%-Water Syringe) 12.5 gm PRN Q15MIN PRN IV SEE COMMENTS; Start 12/08/18 at 08:30 Dextrose 250 ml PRN Q15MIN PRN IV SEE COMMENTS; Start 12/08/18 at 08:30; Status UNV Finasteride (Proscar) 5 mg DAILY PO Last administered on 12/09/18 08:07; Start 12/08/18 at 09:00 Furosemide (Lasix) 40 mg DAILY PO Last administered on 12/09/18 08:07; Start 12/08/18 at 09:00 Gabapentin (Neurontin) 300 mg TID PO Last administered on 12/08/18 09:21; Start 12/08/18 at 09:00; Stop 12/08/18 at 11:57; Status DC Glimepiride (Amaryl) 2 mg DAILY PO Last administered on 12/09/18 08:07; Start 12/08/18 at 09:00 Levothyroxine Sodium (Synthroid) 137 mcg DAILY06 PO Last administered on 12/09/18 07:13; Start 12/08/18 at 10:30 Metformin HCl (Glucophage) 500 mg BID PRN PO Diabetes Mellitus; Start 12/08/18 at 08:30; Stop 12/08/18 at 09:06; Status DC Oxycodone HCl (OxyCONTIN) 10 mg BID PO Last administered on 12/09/18 08:07; Start 12/08/18 at 10:00 Ropinirole HCl (Requip) 1 mg QHS PO Last administered on 12/08/18at 21:35; Start 12/08/18 at 21:00 Tramadol HCl (Ultram) 50 mg PRN Q6HRS PRN PO MILD TO MODERATE PAIN; Start 12/08/18 at 08:30 Febuxostat (Uloric) 40 mg DAILY PO Last administered on 12/09/18 08:07; Start 12/08/18 at 10:00 Non-Formulary Medication (Modafinil (Provigil)) 200 mg DAILY PO ; Start 12/08/18 at 09:00; Stop 12/08/18 at 09:16; Status DC Pantoprazole Sodium (Protonix) 40 mg DAILYAC PO Last administered on 12/09/18 07:13; Start 12/08/18 at 11:30 Atorvastatin Calcium (Lipitor) 10 mg QHS PO Last administered on 12/08/18at 2 1:36; Start 12/08/18 at 21:00 Non-Formulary Medication (Ramipril ) 1 cap DAILY PO ; Start 12/08/18 at 09:00; Stop 12/08/18 at 08:25; Status DC Non-Formulary Medication (Spironolactone ) 1 tab DAILY PO ; Start 12/08/18 at 09:00; Stop 12/08/18 at 08:25; Status DC Metformin HCl (Glucophage) 500 mg BIDWMEALS PO ; Start 12/08/18 at 09:15; Status Cancel Insulin Human Lispro (HumaLOG) 20 units 1X ONCE SQ Last administered on 12/08/18at 09:30; Start 12/08/18 at 09:30; Stop 12/08/18 at 09:35; Status DC Gabapentin (Neurontin) 600 mg TID PO Last administered on 12/09/18at 08:06; Start 12/08/18 at 14:00 Amoxicillin/ Clavulanate Potassium (Augmentin 500/ 125mg) 1 tab BID PO Last administered on 12/09/18at 08:06; Start 12/08/18 at 12:30 Insulin Human Lispro (HumaLOG) 5 units 1X ONCE SQ Last administered on 12/09/18at 01:27; Start 12/09/18 at 01:30; Stop 12/09/18 at 01:31; Status DC Insulin Glargine (Lantus Syringe) 20 unit QHS SQ ; Start 12/09/18 at 21:00 Insulin Glargine (Lantus Syringe) 10 unit ONCE STAT SQ Last administered on 12/09/18at 09:08; Start 12/09/18 at 08:49; Stop 12/09/18 at 08:53; Status DC Lactobacillus Rhamnosus (Culturelle) 1 cap BID PO Last administered on 12/09/18at 10:03; Start 12/09/18 at 10:00 Active Scripts Active Reported Glimepiride 2 Mg Tablet 1 Tab PO DAILY Finasteride 5 Mg Tablet 5 Mg PO DAILY Gabapentin 300 Mg Capsule 300 Mg PO TID Ramipril 5 Mg Capsule 1 Cap PO DAILY Metformin Hcl 500 Mg Tablet 500 Mg PO BID PRN Maalox Advanced Suspension (Mag Hydrox/Aluminum Hyd/Simeth) 355 Ml Oral.susp 355 Ml PO Provigil (Modafinil) 200 Mg Tablet 200 Mg PO DAILY Requip (Ropinirole Hcl) 1 Mg Tablet 1 Tab PO QHS Pravastatin Sodium 40 Mg Tablet 1 Tab PO QHS Uloric (Febuxostat) 80 Mg Tablet 1 Tab PO DAILY Oxycontin (Oxycodone HCl) 10 Mg Tab.er.12h 10 Mg PO BID Oxycodone Hcl 5 Mg Capsule 1 Cap PO TID Spironolactone 50 Mg Tablet 1 Tab PO DAILY Lasix (Furosemide) 40 Mg Tablet 1 Tab PO DAILY Synthroid (Levothyroxine Sodium) 137 Mcg Tablet 1 Tab PO DAILY Tramadol Hcl 50 Mg Tablet 1 Tab PO PRN Q6HRS Omeprazole 20 Mg Capsule.dr 1 Cap PO DAILY Vitals/I & O Vital Sign - Last 24 Hours 12/08/18 12/08/18 12/08/18 12/08/18 14:50 15:17 17:32 18:12 Temp 98.3 98.3 Pulse 91 Resp 20 B/P (MAP) 90/64 (73) Pulse Ox 91 93 93 93 O2 Delivery Nasal Cannula Nasal Cannula Nasal Cannula Nasal Cannula O2 Flow Rate 2.0 2.0 2.0 2.0 12/08/18 12/08/18 12/08/18 12/08/18 19:00 19:35 21:32 21:35 Temp 98.1 98.1 Pulse 86 85 Resp 18 B/P (MAP) 103/38 (59) 113/37 (62) Pulse Ox 95 96 O2 Delivery Nasal Cannula Nasal Cannula Nasal Cannula Nasal Cannula O2 Flow Rate 2.0 2.0 2.0 12/08/18 12/08/18 12/09/18 12/09/18 23:03 23:50 00:20 01:35 Temp 98.3 98.3 Pulse 86 B/P (MAP) 111/46 (67) Pulse Ox 95 O2 Delivery Nasal Cannula Room Air Room Air Room Air O2 Flow Rate 2.0 12/09/18 12/09/18 12/09/18 12/09/18 03:00 07:00 08:00 08:07 Temp 98.2 98.0 98.2 98.0 Pulse 80 75 Resp 20 16 B/P (MAP) 116/56 (76) 117/47 (70) Pulse Ox 92 O2 Delivery Nasal Cannula Room Air Nasal Cannula Nasal Cannula O2 Flow Rate 2.0 2.0 2.0 12/09/18 12/09/18 12/09/18 08:08 08:38 11:00 Temp 98.2 98.2 Pulse 85 Resp 16 16 20 B/P (MAP) 112/39 (63) Pulse Ox 94 O2 Delivery Nasal Cannula Room Air Room Air O2 Flow Rate 2.0 Intake and Output 12/08/18 12/08/18 12/09/18 15:00 23:00 07:00 Intake Total 540 ml 350 ml Output Total 1200 ml 1420 ml 1950 ml Balance -660 ml -1070 ml -1950 ml NAZIA GONZALEZ MD Dec 09, 2018 12:15
--- NOTE | 2018-12-09 14:19 | NUR ---
SS following up with discharge planning. PT/OT recommended penitentiary unit. production control planner, Naomi Gustafson, met with pt and discussed penitentiary unit. Pt and family declined [facility] due to previous experience. Pt and family requested [facility], ; fax [phone], as a first choice and [facility], [phone]; fax [phone], as a second choice. Naomi phoned and faxed referrals. SS currently awaiting acceptance decision and will proceed accordingly.
[2018-12-09 15:00] VITALS: BP 138/56
[2018-12-09 19:00] VITALS: BP 103/40
[2018-12-09] MEDS: traMADol 50 MG TABLET PO PRN (19:55)
[2018-12-09] MEDS: rOPINIRole 1 MG TABLET. PO SCH (19:56)
[2018-12-09] MEDS: ATORVASTATIN CALCIUM 10 MG TABLET. PO SCH (19:56)
[2018-12-09] MEDS ORDERED: INSULIN GLARGINE SYRINGE. SQ SCH (21:00)
[2018-12-09 23:00] VITALS: BP 113/56
[2018-12-10] MEDS: oxyCODONE/APAP 5/325 1 TAB TABLET PO PRN ×3 (00:24→09:18)
[2018-12-10] MEDS: MORPHINE SULFATE 2 MG/ML VIAL. IV PRN ×2 (02:32→12:42)
[2018-12-10 03:00] VITALS: BP 100/56
[2018-12-10] MEDS: PANTOPRAZOLE 40 MG TABLET.DR. PO SCH (06:15)
[2018-12-10] MEDS: traMADol 50 MG TABLET PO PRN ×2 (06:15→12:43)
[2018-12-10] MEDS: LEVOTHYROXINE 137 MCG TABLET PO SCH (06:15)
[2018-12-10 07:00] VITALS: BP 109/56
[2018-12-10] MEDS: INSULIN LISPRO 300 UNITS/3 ML VIAL. SQ SCH ×2 (07:58→12:47)
[2018-12-10] MEDS: GABAPENTIN 300 MG CAPSULE. PO SCH (08:01)
[2018-12-10] MEDS: LACTOBACILLUS RHAMNOSUS GG 1 CAPSULE. PO SCH (08:01)
[2018-12-10] MEDS: FEBUXOSTAT 40 MG TABLET PO SCH (08:01)
[2018-12-10] MEDS: FINASTERIDE 5 MG TABLET. PO SCH (08:01)
[2018-12-10] MEDS: oxyCODONE ER 10 MG TAB.ER.12H PO SCH (08:02)
[2018-12-10] MEDS: FUROSEMIDE 40 MG TABLET. PO SCH (08:02)
[2018-12-10] MEDS: GLIMEPIRIDE 2 MG TABLET. PO SCH (08:02)
[2018-12-10] MEDS: AMOXICILLIN/K CLAV 500/125MG TABLET. PO SCH (08:03)
--- NOTE | 2018-12-10 09:19 | PDOC ---
PROGRESS NOTES Chief Complaint Chief Complaint Right ankle open dislocation-mechanical fall traumatic Diabetes type 2 hemoglobin A1c 7 Obesity, BMI 51 Hypertension hx but NOW borderline hypotensive History of Present Illness History of Present Illness BS better with my adjustments Hgba1c 7 though BP systolic 1 teens - without resumption of 2 home bp meds AGreeable to SNU - looking at [facility] - and referrals were sent wednesday CReat 1,4 in this DM - not any worse PLAN: I held off ivf re scott cont lantus 20 qhs Keep glyburide Cant do metformin bec of creat [facility] on dc - still waiting for acceptance - she will be here till wednesday FULL CODE OK to use own aspercreme lotion Vitals Vitals Vital Signs Date Time Temp Pulse Resp B/P (MAP) Pulse Ox O2 Delivery O2 Flow Rate FiO2 12/10/18 08:02 18 Room Air 12/10/18 07:15 92 2.0 12/10/18 07:00 98.4 84 109/56 (73) 98.4 Physical Exam General: Alert, Oriented X3, Cooperative, No acute distress Abdomen: Normal bowel sounds, Soft, No tenderness, No hepatosplenomegaly, No masses Extremities: No clubbing, No cyanosis, Normal pulses, Other (right ankle dressing/soft cast) Skin: No rashes, No breakdown Labs LABS Laboratory Tests Test 12/09/18 12:19 12/09/18 16:59 12/09/18 20:50 12/10/18 07:39 Glucose (Fingerstick) 255 mg/dL (70-99) 291 mg/dL (70-99) 354 mg/dL (70-99) 217 mg/dL (70-99) Review of Systems Review of Systems asleep i did not awaken Assessment and Plan Assessmemt and Plan Problems Medical Problems: (1) Open fracture dislocation of ankle joint Status: Acute Comment Review of Relevant I have reviewed the following items renae (where applicable) has been applied. Labs Laboratory Tests Test 12/08/18 11:41 12/08/18 16:45 12/09/18 00:59 12/09/18 07:39 Glucose (Fingerstick) 331 mg/dL (70-99) 231 mg/dL (70-99) 313 mg/dL (70-99) 236 mg/dL (70-99) Test 12/09/18 12:19 12/09/18 16:59 12/09/18 20:50 12/10/18 07:39 Glucose (Fingerstick) 255 mg/dL (70-99) 291 mg/dL (70-99) 354 mg/dL (70-99) 217 mg/dL (70-99) Laboratory Tests Test 12/09/18 12:19 12/09/18 16:59 12/09/18 20:50 12/10/18 07:39 Glucose (Fingerstick) 255 mg/dL (70-99) 291 mg/dL (70-99) 354 mg/dL (70-99) 217 mg/dL (70-99) Medications Current Medications Morphine Sulfate (Morphine Sulfate) 4 mg 1X ONCE IV ; Start 12/07/18 at 15:45; Stop 12/07/18 at 15:49; Status DC Cefazolin Sodium 50 ml @ 100 mls/hr 1X ONCE IV Last administered on 12/07/18at 16:30; Start 12/07/18 at 15:45; Stop 12/07/18 at 16:14; Status DC Ondansetron HCl (Zofran) 4 mg PRN Q6HRS PRN IV NAUSEA/VOMITING; Start 12/07/18 at 16:30; Stop 12/07/18 at 22:00; Status DC Fentanyl Citrate (Fentanyl 2ml Vial) 25 mcg PRN Q5MIN PRN IV MILD PAIN 1-3; Start 12/07/18 at 16:30; Stop 12/07/18 at 22:00; Status DC Fentanyl Citrate (Fentanyl 2ml Vial) 50 mcg PRN Q5MIN PRN IV MODERATE TO SEVERE PAIN; Start 12/07/18 at 16:30; Stop 12/07/18 at 22:00; Status DC Morphine Sulfate (Morphine Sulfate) 1 mg PRN Q10MIN PRN IV SEVERE PAIN 7-10; Start 12/07/18 at 16:30; Stop 12/07/18 at 22:00; Status DC Ringer's Solution 1,000 ml @ 30 mls/hr Q24H IV ; Start 12/07/18 at 16:25; Stop 12/08/18 at 04:24; Status DC Hydromorphone HCl (Dilaudid) 0.5 mg PRN Q10MIN PRN IV SEV PAIN, Second choice; Start 12/07/18 at 16:30; Stop 12/07/18 at 22:00; Status DC Prochlorperazine Edisylate (Compazine) 5 mg PACU PRN PRN IV NAUSEA, MRX1; Start 12/07/18 at 16:30; Stop 12/07/18 at 22:00; Status DC Sodium Chloride 1,000 ml @ 125 mls/hr 1X ONCE IV Last administered on 12/07/18at 16:47; Start 12/07/18 at 16:30; Stop 12/08/18 at 00:29; Status DC Insulin Human Regular (HumuLIN R VIAL) 5 unit 1X ONCE IV Last administered on 12/07/18at 16:46; Start 12/07/18 at 16:45; Stop 12/07/18 at 16:46; Status DC Fentanyl Citrate (Fentanyl 2ml Vial) 50 mcg 1X ONCE IV Last administered on 12/07/18at 16:43; Start 12/07/18 at 16:45; Stop 12/07/18 at 16:46; Status DC Insulin Human Lispro (HumaLOG VIAL for OP,RR ONLY) 0-10 units PRN Q1HR PRN SQ PER PROTOCOL Last administered on 12/07/18at 18:57; Start 12/07/18 at 19:00; Stop 12/08/18 at 18:59; Status DC Cefazolin Sodium 50 ml @ 100 mls/hr 1X PREOP ONCE IV ; Start 12/07/18 at 19:15; Stop 12/07/18 at 19:44; Status DC Fentanyl Citrate (Fentanyl 2ml Vial) 100 mcg STK-MED ONCE .ROUTE ; Start 12/07/18 at 19:17; Stop 12/07/18 at 19:17; Status DC Cefazolin Sodium (Ancef) 1 gm STK-MED ONCE .ROUTE ; Start 12/07/18 at 19:43; Stop 12/07/18 at 19:43; Status DC Phenylephrine HCl (Dex-Synephrine Inj) 10 mg STK-MED ONCE .ROUTE ; Start 12/07/18 at 20:03; Stop 12/07/18 at 20:03; Status DC Phenylephrine HCl (Dex-Synephrine Inj) 10 mg STK-MED ONCE .ROUTE ; Start 12/07/18 at 20:03; Stop 12/07/18 at 20:03; Status DC Propofol 20 ml @ As Directed STK-MED ONCE IV ; Start 12/07/18 at 20:17; Stop 12/07/18 at 20:17; Status DC Dexamethasone Sodium Phosphate (Decadron) 4 mg STK-MED ONCE .ROUTE ; Start 12/07/18 at 20:17; Stop 12/07/18 at 20:17; Status DC Lidocaine HCl (Lidocaine Pf 2% Vial) 5 ml STK-MED ONCE .ROUTE ; Start 12/07/18 at 20:17; Stop 12/07/18 at 20:17; Status DC Ondansetron HCl (Zofran) 4 mg STK-MED ONCE .ROUTE ; Start 12/07/18 at 20:17; Stop 12/07/18 at 20:17; Status DC Sevoflurane (Ultane) 90 ml STK-MED ONCE IH ; Start 12/07/18 at 20:17; Stop 12/07/18 at 20:18; Status DC Morphine Sulfate (Morphine Sulfate) 2 mg PRN Q2HR PRN IV MODERATE PAIN 4-6 (1st Choice) Last administered on 12/09/18at 13:16; Start 12/07/18 at 23:45 Morphine Sulfate (Morphine Sulfate) 4 mg PRN Q2HR PRN IV SEVERE PAIN 7-10 (1st Choice) Last administered on 12/10/18at 02:32; Start 12/07/18 at 23:45 Influenza Virus Vaccine Quadrival (Afluria Quad 2019-20 (3yr Up) Syringe) 0.5 ml ONCE ONCE VAX IM Last administered on 12/08/18at 09:26; Start 12/08/18 at 09:00; Stop 12/08/18 at 09:05; Status DC Fentanyl Citrate (Fentanyl 2ml Vial) 50 mcg PRN Q2HR PRN IV MOD TO SEV PAIN (2nd Choice); Start 12/08/18 at 08:30 Oxycodone/ Acetaminophen (Percocet 5/325) 1 tab PRN Q4HRS PRN PO MODERATE TO SEVERE PAIN Last administered on 12/10/18at 04:36; Start 12/08/18 at 08:30 Insulin Human Lispro (HumaLOG) 0-9 UNITS TIDWMEALS SQ Last administered on 12/10/18at 07:58; Start 12/08/18 at 12:00 Dextrose (Dextrose 50%-Water Syringe) 12.5 gm PRN Q15MIN PRN IV SEE COMMENTS; Start 12/08/18 at 08:30 Dextrose 250 ml PRN Q15MIN PRN IV SEE COMMENTS; Start 12/08/18 at 08:30; Status UNV Finasteride (Proscar) 5 mg DAILY PO Last administered on 12/10/18 08:01; Start 12/08/18 at 09:00 Furosemide (Lasix) 40 mg DAILY PO Last administered on 12/10/18at 08:02; Start 12/08/18 at 09:00 Gabapentin (Neurontin) 300 mg TID PO Last administered on 12/08/18 09:21; Start 12/08/18 at 09:00; Stop 12/08/18 at 11:57; Status DC Glimepiride (Amaryl) 2 mg DAILY PO Last administered on 12/10/18 08:02; Start 12/08/18 at 09:00 Levothyroxine Sodium (Synthroid) 137 mcg DAILY06 PO Last administered on 12/10/18at 06:15; Start 12/08/18 at 10:30 Metformin HCl (Glucophage) 500 mg BID PRN PO Diabetes Mellitus; Start 12/08/18 at 08:30; Stop 12/08/18 at 09:06; Status DC Oxycodone HCl (OxyCONTIN) 10 mg BID PO Last administered on 12/10/18at 08:02; Start 12/08/18 at 10:00 Ropinirole HCl (Requip) 1 mg QHS PO Last administered on 12/09/18at 19:56; Start 12/08/18 at 21:00 Tramadol HCl (Ultram) 50 mg PRN Q6HRS PRN PO MILD TO MODERATE PAIN Last administered on 12/10/18 06:15; Start 12/08/18 at 08:30 Febuxostat (Uloric) 40 mg DAILY PO Last administered on 12/10/18at 08:01; Start 12/08/18 at 10:00 Non-Formulary Medication (Modafinil (Provigil)) 200 mg DAILY PO ; Start 12/08/18 at 09:00; Stop 12/08/18 at 09:16; Status DC Pantoprazole Sodium (Protonix) 40 mg DAILYAC PO Last administered on 12/10/18 06:15; Start 12/08/18 at 11:30 Atorvastatin Calcium (Lipitor) 10 mg QHS PO Last administered on 12/09/18at 19:56; Start 12/08/18 at 21:00 Non-Formulary Medication (Ramipril ) 1 cap DAILY PO ; Start 12/08/18 at 09:00; Stop 12/08/18 at 08:25; Status DC Non-Formulary Medication (Spironolactone ) 1 tab DAILY PO ; Start 12/08/18 at 0 9:00; Stop 12/08/18 at 08:25; Status DC Metformin HCl (Glucophage) 500 mg BIDWMEALS PO ; Start 12/08/18 at 09:15; Status Cancel Insulin Human Lispro (HumaLOG) 20 units 1X ONCE SQ Last administered on 12/08/18at 09:30; Start 12/08/18 at 09:30; Stop 12/08/18 at 09:35; Status DC Gabapentin (Neurontin) 600 mg TID PO Last administered on 12/10/18at 08:01; Start 12/08/18 at 14:00 Amoxicillin/ Clavulanate Potassium (Augmentin 500/ 125mg) 1 tab BID PO Last administered on 12/10/18 08:03; Start 12/08/18 at 12:30 Insulin Human Lispro (HumaLOG) 5 units 1X ONCE SQ Last administered on 12/09/18at 01:27; Start 12/09/18 at 01:30; Stop 12/09/18 at 01:31; Status DC Insulin Glargine (Lantus Syringe) 20 unit QHS SQ Last administered on 12/09/18at 21:21; Start 12/09/18 at 21:00 Insulin Glargine (Lantus Syringe) 10 unit ONCE STAT SQ Last administered on 12/09/18at 09:08; Start 12/09/18 at 08:49; Stop 12/09/18 at 08:53; Status DC Lactobacillus Rhamnosus (Culturelle) 1 cap BID PO Last administered on 12/10/18at 08:01; Start 12/09/18 at 10:00 Active Scripts Active Reported Glimepiride 2 Mg Tablet 1 Tab PO DAILY Finasteride 5 Mg Tablet 5 Mg PO DAILY Gabapentin 300 Mg Capsule 300 Mg PO TID Ramipril 5 Mg Capsule 1 Cap PO DAILY Metformin Hcl 500 Mg Tablet 500 Mg PO BID PRN Maalox Advanced Suspension (Mag Hydrox/Aluminum Hyd/Simeth) 355 Ml Oral.susp 355 Ml PO Provigil (Modafinil) 200 Mg Tablet 200 Mg PO DAILY Requip (Ropinirole Hcl) 1 Mg Tablet 1 Tab PO QHS Pravastatin Sodium 40 Mg Tablet 1 Tab PO QHS Uloric (Febuxostat) 80 Mg Tablet 1 Tab PO DAILY Oxycontin (Oxycodone HCl) 10 Mg Tab.er.12h 10 Mg PO BID Oxycodone Hcl 5 Mg Capsule 1 Cap PO TID Spironolactone 50 Mg Tablet 1 Tab PO DAILY Lasix (Furosemide) 40 Mg Tablet 1 Tab PO DAILY Synthroid (Levothyroxine Sodium) 137 Mcg Tablet 1 Tab PO DAILY Tramadol Hcl 50 Mg Tablet 1 Tab PO PRN Q6HRS Omeprazole 20 Mg Capsule.dr 1 Cap PO DAILY Vitals/I & O Vital Sign - Last 24 Hours 12/09/18 12/09/18 12/09/18 12/09/18 11:00 12:08 13:16 14:06 Temp 98.2 98.2 Pulse 85 Resp 20 16 18 16 B/P (MAP) 112/39 (63) Pulse Ox 94 O2 Delivery Room Air Nasal Cannula Nasal Cannula Nasal Cannula O2 Flow Rate 2.0 2.0 2.0 12/09/18 12/09/18 12/09/18 12/09/18 15:00 15:21 16:26 19:00 Temp 98.2 98.5 98.2 98.5 Pulse 79 69 Resp 20 16 16 18 B/P (MAP) 138/56 (83) 103/40 (61) Pulse Ox 92 95 O2 Delivery Room Air Nasal Cannula Room Air Room Air O2 Flow Rate 2.0 12/09/18 12/09/18 12/09/18 12/09/18 19:55 19:56 20:00 20:55 Resp 18 18 18 Pulse Ox 92 92 92 O2 Delivery Nasal Cannula Nasal Cannula Room Air Nasal Cannula O2 Flow Rate 2.0 2.0 2.0 12/09/18 12/09/18 12/10/18 12/10/18 23:00 23:56 00:24 01:24 Temp 98.0 98.0 Pulse 79 Resp 18 18 18 18 B/P (MAP) 113/56 (75) Pulse Ox 90 92 92 92 O2 Delivery Room Air Room Air Room Air Room Air O2 Flow Rate 2.0 2.0 2.0 12/10/18 12/10/18 12/10/18 12/10/18 02:32 03:00 03:02 04:36 Temp 98.9 98.9 Pulse 83 Resp 18 18 18 18 B/P (MAP) 100/56 (71) Pulse Ox 92 90 92 92 O2 Delivery Room Air Room Air Room Air Room Air O2 Flow Rate 2.0 2.0 12/10/18 12/10/18 12/10/18 12/10/18 05:36 06:15 07:00 07:15 Temp 98.4 98.4 Pulse 84 Resp 18 14 18 B/P (MAP) 109/56 (73) Pulse Ox 92 92 92 92 O2 Delivery Room Air Room Air Room Air Room Air O2 Flow Rate 2.0 2.0 2.0 12/10/18 08:02 Resp 18 O2 Delivery Room Air Intake and Output 12/09/18 12/09/18 12/10/18 15:00 23:00 07:00 Intake Total 1220 ml 760 ml Output Total 2300 ml 800 ml 1500 ml Balance -1080 ml -40 ml -1500 ml NAZIA GONZALEZ MD Dec 10, 2018 09:19
[2018-12-10 09:32] LABS: BASO % 1 % (0-3); EOS # 0.2 x10^3/uL (0.0-0.7); EOS % 4 % (0-3); HEMATOCRIT 31.2 % (36.0-47.0); HEMOGLOBIN 10.3 g/dL (12.0-15.5); LYMPH # 1.2 x10^3/uL (1.0-4.8); LYMPH % 22 % (24-48); MEAN CORPUSCULAR HEMOGLOBIN 30 pg (25-35); MEAN CORPUSCULAR HGB CONC 33 g/dL (31-37); MEAN CORPUSCULAR VOLUME 91 fL (79-100); MONO # 0.5 x10^3/uL (0.0-1.1); MONO % 8 % (0-9); NEUT # 3.7 x10^3/uL (1.8-7.7); NEUT % 66 % (31-73); PLATELET COUNT 177 x10^3/uL (140-400); RED BLOOD COUNT 3.43 x10^6/uL (3.50-5.40); RED CELL DISTRIBUTION WIDTH 13.3 % (11.5-14.5); WHITE BLOOD COUNT 5.7 x10^3/uL (4.0-11.0)
[2018-12-10 09:54] LABS: ALBUMIN 2.6 g/dL (3.4-5.0); ALBUMIN/GLOBULIN RATIO 0.6 (1.0-1.7); CALCIUM 9.1 mg/dL (8.5-10.1); CREATININE 1.3 mg/dL (0.6-1.0); POTASSIUM 4.1 mmol/L (3.5-5.1); TOTAL BILIRUBIN 0.3 mg/dL (0.2-1.0); TOTAL PROTEIN 6.7 g/dL (6.4-8.2)
[2018-12-10] MEDS ORDERED: AMOX1TAB10 PO (10:07)
[2018-12-10] MEDS ORDERED: TRAM50TA PO (10:07)
[2018-12-10] MEDS ORDERED: OXYC10TA46 PO (10:07)
--- NOTE | 2018-12-10 10:08 | SNU/HH DC ---
DISCHARGE ORDERS DISCHARGE INFORMATION: DISCHARGE DATE: Dec 10, 2018 FINAL DIAGNOSIS Problems Medical Problems: (1) Open fracture dislocation of ankle joint Status: Acute CODE STATUS: Code Status: Full [facility]: SNF STAY <30 DAYS: Yes HOSPICE: HOSPICE: No HOSPICE EVAL & TREAT: No LTAC: ADMIT TO LTAC: No POST DISCHARGE ORDERS: DIET AFTER DISCHARGE: Regular CHECKS AFTER DISCHARGE: CHECKS AFTER DISCHARGE: Check blood press - daily, Check blood sugar, ac/hs FOLLOW-UP: PHYSICIAN FOLLOW-UP: ortho ff up after SNU dc TREATMENT/EQUIPMENT ORDERS: ADAPTIVE EQUIPMENT NEEDED: Cane Physical Therapy For: Evalulation/Treatment Occupational Therapy For: Evaluation/Treatment DISCHARGE MEDICATIONS: Home Meds Active Scripts Amoxicillin/Potassium Clav (AMOX TR-K CLV 500-125 MG TAB) 1 Each Tablet, 1 TAB PO BID for prophylacti had open rt ankle , #14 TAB Prov:NAZIA GONZALEZ MD 12/10/18 Oxycodone Hcl (OXYCONTIN ) 10 Mg Tab.er.12h, 10 MG PO BID for PAIN, #30 TAB Prov:NAZIA GONZALEZ MD 12/10/18 Tramadol Hcl (TRAMADOL HCL) 50 Mg Tablet, 1 TAB PO PRN Q6HRS for pain, #30 TAB Prov:NAZIA GONZALEZ MD 12/10/18 Reported Medications Glimepiride (GLIMEPIRIDE) 2 Mg Tablet, 1 TAB PO DAILY for diabetes, #30 TAB 5 Refills 12/08/18 Finasteride (FINASTERIDE) 5 Mg Tablet, 5 MG PO DAILY for baldness, TAB 12/08/18 Gabapentin (GABAPENTIN) 300 Mg Capsule, 300 MG PO TID for NEUROGENIC PAIN, CAP 12/08/18 Ramipril (RAMIPRIL) 5 Mg Capsule, 1 CAP PO DAILY for Hypertension, #30 CAP 5 Refills 12/08/18 Metformin Hcl (METFORMIN HCL) 500 Mg Tablet, 500 MG PO BID PRN for Diabetes Mellitus, TAB 0 Refills 12/08/18 Mag Hydrox/Aluminum Hyd/Simeth (Maalox Advanced Suspension) 355 Ml Oral.susp, 355 ML PO, MISC 11/17/16 Modafinil (PROVIGIL) 200 Mg Tablet, 200 MG PO DAILY, TAB 11/17/16 Ropinirole Hcl (REQUIP) 1 Mg Tablet, 1 TAB PO QHS, #30 TAB 2 Refills 11/17/16 Pravastatin Sodium (PRAVASTATIN SODIUM) 40 Mg Tablet, 1 TAB PO QHS, #90 TAB 1 Refill 11/17/16 Febuxostat (ULORIC) 80 Mg Tablet, 1 TAB PO DAILY, #90 TAB 1 Refill 11/17/16 Oxycodone Hcl (OXYCODONE HCL) 5 Mg Capsule, 1 CAP PO TID, #90 CAP 11/17/16 Spironolactone (SPIRONOLACTONE) 50 Mg Tablet, 1 TAB PO DAILY, #30 TAB 5 Refills 11/17/16 Furosemide (LASIX) 40 Mg Tablet, 1 TAB PO DAILY, #90 TAB 1 Refill 11/17/16 Levothyroxine Sodium (SYNTHROID) 137 Mcg Tablet, 1 TAB PO DAILY, #30 TAB 5 Refills 11/17/16 Omeprazole (OMEPRAZOLE) 20 Mg Capsule., 1 CAP PO DAILY, #30 CAP 5 Refills 11/17/16 NAZIA GONZALEZ MD Dec 10, 2018 10:08
--- NOTE | 2018-12-10 10:10 | PDOC3 ---
Discharge Summary Visit Information Date of Admission: Dec 07, 2018 Date of Discharge: Dec 10, 2018 Admitting Diagnosis Comment: Right ankle open dislocation-mechanical fall traumatic Diabetes type 2 hemoglobin A1c 7 Obesity, BMI 51 Hypertension hx but NOW borderline hypotensive Final Diagnosis Problems Medical Problems: (1) Open fracture dislocation of ankle joint Status: Acute Brief Hospital Course Allergies Allergies Coded Allergies Type Severity Reaction Last Updated Verified No Known Drug Allergies 12/07/18 No Vital Signs Vital Signs Date Time Temp Pulse Resp B/P (MAP) Pulse Ox O2 Delivery O2 Flow Rate FiO2 12/10/18 09:18 18 Room Air 12/10/18 07:15 92 2.0 12/10/18 07:00 98.4 84 109/56 (73) 98.4 Lab Results Laboratory Tests Test 12/08/18 11:41 12/08/18 16:45 12/09/18 00:59 12/09/18 07:39 Glucose (Fingerstick) 331 mg/dL (70-99) 231 mg/dL (70-99) 313 mg/dL (70-99) 236 mg/dL (70-99) Test 12/09/18 12:19 12/09/18 16:59 12/09/18 20:50 12/10/18 07:39 Glucose (Fingerstick) 255 mg/dL (70-99) 291 mg/dL (70-99) 354 mg/dL (70-99) 217 mg/dL (70-99) Test 12/10/18 09:02 White Blood Count 5.7 x10^3/uL (4.0-11.0) Red Blood Count 3.43 x10^6/uL (3.50-5.40) Hemoglobin 10.3 g/dL (12.0-15.5) Hematocrit 31.2 % (36.0-47.0) Mean Corpuscular Volume 91 fL (79-100) Mean Corpuscular Hemoglobin 30 pg (25-35) Mean Corpuscular Hemoglobin Concent 33 g/dL (31-37) Red Cell Distribution Width 13.3 % (11.5-14.5) Platelet Count 177 x10^3/uL (140-400) Neutrophils (%) (Auto) 66 % (31-73) Lymphocytes (%) (Auto) 22 % (24-48) Monocytes (%) (Auto) 8 % (0-9) Eosinophils (%) (Auto) 4 % (0-3) Basophils (%) (Auto) 1 % (0-3) Neutrophils # (Auto) 3.7 x10^3/uL (1.8-7.7) Lymphocytes # (Auto) 1.2 x10^3/uL (1.0-4.8) Monocytes # (Auto) 0.5 x10^3/uL (0.0-1.1) Eosinophils # (Auto) 0.2 x10^3/uL (0.0-0.7) Basophils # (Auto) 0.0 x10^3/uL (0.0-0.2) Sodium Level 138 mmol/L (136-145) Potassium Level 4.1 mmol/L (3.5-5.1) Chloride Level 102 mmol/L (98-107) Carbon Dioxide Level 30 mmol/L (21-32) Anion Gap 6 (6-14) Blood Urea Nitrogen 30 mg/dL (7-20) Creatinine 1.3 mg/dL (0.6-1.0) Estimated GFR (Cockcroft-Gault) 40.0 BUN/Creatinine Ratio 23 (6-20) Glucose Level 323 mg/dL (70-99) Calcium Level 9.1 mg/dL (8.5-10.1) Total Bilirubin 0.3 mg/dL (0.2-1.0) Aspartate Amino Transf (AST/SGOT) 23 U/L (15-37) Alanine Aminotransferase (ALT/SGPT) 17 U/L (14-59) Alkaline Phosphatase 47 U/L (46-116) Total Protein 6.7 g/dL (6.4-8.2) Albumin 2.6 g/dL (3.4-5.0) Albumin/Globulin Ratio 0.6 (1.0-1.7) Laboratory Tests Test 12/09/18 12:19 12/09/18 16:59 12/09/18 20:50 12/10/18 07:39 Glucose (Fingerstick) 255 mg/dL (70-99) 291 mg/dL (70-99) 354 mg/dL (70-99) 217 mg/dL (70-99) Test 12/10/18 09:02 White Blood Count 5.7 x10^3/uL (4.0-11.0) Red Blood Count 3.43 x10^6/uL (3.50-5.40) Hemoglobin 10.3 g/dL (12.0-15.5) Hematocrit 31.2 % (36.0-47.0) Mean Corpuscular Volume 91 fL (79-100) Mean Corpuscular Hemoglobin 30 pg (25-35) Mean Corpuscular Hemoglobin Concent 33 g/dL (31-37) Red Cell Distribution Width 13.3 % (11.5-14.5) Platelet Count 177 x10^3/uL (140-400) Neutrophils (%) (Auto) 66 % (31-73) Lymphocytes (%) (Auto) 22 % (24-48) Monocytes (%) (Auto) 8 % (0-9) Eosinophils (%) (Auto) 4 % (0-3) Basophils (%) (Auto) 1 % (0-3) Neutrophils # (Auto) 3.7 x10^3/uL (1.8-7.7) Lymphocytes # (Auto) 1.2 x10^3/uL (1.0-4.8) Monocytes # (Auto) 0.5 x10^3/uL (0.0-1.1) Eosinophils # (Auto) 0.2 x10^3/uL (0.0-0.7) Basophils # (Auto) 0.0 x10^3/uL (0.0-0.2) Sodium Level 138 mmol/L (136-145) Potassium Level 4.1 mmol/L (3.5-5.1) Chloride Level 102 mmol/L (98-107) Carbon Dioxide Level 30 mmol/L (21-32) Anion Gap 6 (6-14) Blood Urea Nitrogen 30 mg/dL (7-20) Creatinine 1.3 mg/dL (0.6-1.0) Estimated GFR (Cockcroft-Gault) 40.0 BUN/Creatinine Ratio 23 (6-20) Glucose Level 323 mg/dL (70-99) Calcium Level 9.1 mg/dL (8.5-10.1) Total Bilirubin 0.3 mg/dL (0.2-1.0) Aspartate Amino Transf (AST/SGOT) 23 U/L (15-37) Alanine Aminotransferase (ALT/SGPT) 17 U/L (14-59) Alkaline Phosphatase 47 U/L (46-116) Total Protein 6.7 g/dL (6.4-8.2) Albumin 2.6 g/dL (3.4-5.0) Albumin/Globulin Ratio 0.6 (1.0-1.7) Brief Hospital Course Ms. Shelby is a 73 old white female who sustained a mechanical fall and actual had AN OPEN RT ANKLE fx and underwent sx and tolerated proc well with no rosemary op complications, NEeds snu so dc to snu MAR done 2 notes Pt seen and examined COnsults: Dr Mcdowell - ortho Discharge Information Condition at Discharge: Improved, Stable Follow Up: Weeks (ff up orthpo 2- 4 weeks) Disposition/Orders: Other (snu) Scheduled Amoxicillin/Potassium Clav (Amox Tr-K Clv 500-125 Mg Tab) 1 Each Tablet, 1 TAB PO BID for prophylacti had open rt ankle , #14 Prescribed by: NAZIA GONZALEZ on 12/10/18 1007 Febuxostat (Uloric) 80 Mg Tablet, 1 TAB PO DAILY, #90 Ref 1 (Reported) Entered as Reported by: Umm Shin on 11/17/16 1533 Last Action: Converted on 12/08/18821 by PAULO HENSLEY Finasteride (Finasteride) 5 Mg Tablet, 5 MG PO DAILY for baldness, (Reported) Entered as Reported by: NABIL ARTEAGA RN on 12/08/18231 Last Taken: UNKNOWN on Unknown Date & Time Last Action: Continued on 12/08/18821 by PAULO HENSLEY Furosemide (Lasix) 40 Mg Tablet, 1 TAB PO DAILY, #90 Ref 1 (Reported) Entered as Reported by: Umm Shin on 11/17/16 1533 Last Action: Continued on 12/08/18821 by PAULO HENSLEY Gabapentin (Gabapentin) 300 Mg Capsule, 300 MG PO TID for NEUROGENIC PAIN, (Reported) Entered as Reported by: NABIL ARTEAGA RN on 12/08/18231 Last Taken: UNKNOWN on Unknown Date & Time Last Action: Continued on 12/08/18821 by PAULO HENSLEY Glimepiride (Glimepiride) 2 Mg Tablet, 1 TAB PO DAILY for diabetes, #30 Ref 5 (Reported) Entered as Reported by: NABIL ARTEAGA RN on 12/08/18231 Last Taken: UNKNOWN on Unknown Date & Time Last Action: Continued on 12/08/18821 by PAULO HENSLEY Levothyroxine Sodium (Synthroid) 137 Mcg Tablet, 1 TAB PO DAILY, #30 Ref 5 (Reported) Entered as Reported by: Umm Shin on 11/17/161532 Last Action: Continued on 12/08/18821 by PAULO HENSLEY Modafinil (Provigil) 200 Mg Tablet, 200 MG PO DAILY, (Reported) Entered as Reported by: Umm Shin on 11/17/161532 Last Action: Converted on 12/08/18821 by PAULO HENSLEY Omeprazole (Omeprazole) 20 Mg Capsule.dr, 1 CAP PO DAILY, #30 Ref 5 (Reported) Entered as Reported by: Umm Shin on 11/17/161532 Last Action: Converted on 12/08/18821 by PAULO HENSLEY Oxycodone Hcl (Oxycodone Hcl) 5 Mg Capsule, 1 CAP PO TID, #90 (Reported) Entered as Reported by: Umm Shin on 11/17/161532 Last Action: Reviewed on 12/08/18231 by NABIL ARTEAGA RN Oxycodone Hcl (Oxycontin ) 10 Mg Tab.er.12h, 10 MG PO BID for PAIN, #30 Prescribed by: NAZIA GONZALEZ on 12/10/18 1007 Pravastatin Sodium (Pravastatin Sodium) 40 Mg Tablet, 1 TAB PO QHS, #90 Ref 1 ( Reported) Entered as Reported by: Umm Shin on 11/17/161532 Last Action: Converted on 12/08/18821 by PAULO HENSLEY Ramipril (Ramipril) 5 Mg Capsule, 1 CAP PO DAILY for Hypertension, #30 Ref 5 (Reported) Entered as Reported by: NABIL ARTEAGA RN on 12/08/18231 Last Taken: UNKNOWN on Unknown Date & Time Last Action: Converted on 821 by PAULO HENSLEY Ropinirole Hcl (Requip) 1 Mg Tablet, 1 TAB PO QHS, #30 Ref 2 (Reported) Entered as Reported by: Umm Shin on 11/17/161532 Last Action: Continued on 12/08/18821 by PAULO HENSLEY Spironolactone (Spironolactone) 50 Mg Tablet, 1 TAB PO DAILY, #30 Ref 5 (Reported) Entered as Reported by: Umm Shin on 11/17/161532 Last Action: Converted on 12/08/18821 by PAULO HENSLEY Tramadol Hcl (Tramadol Hcl) 50 Mg Tablet, 1 TAB PO PRN Q6HRS for pain, #30 Prescribed by: NAZIA GONZALEZ on 12/10/18 1007 Scheduled PRN Metformin Hcl (Metformin Hcl) 500 Mg Tablet, 500 MG PO BID PRN for Diabetes Mellitus, Ref 0 (Reported) Entered as Reported by: NABIL ARTEAGA RN on 12/08/18231 Last Taken: UNKNOWN on Unknown Date & Time Last Action: Continued on 12/08/18821 by PAULO HENSLEY Miscellaneous Medications Mag Hydrox/Aluminum Hyd/Simeth (Maalox Advanced Suspension) 355 Ml Oral.susp, 355 ML PO, (Reported) Entered as Reported by: Umm Shin on 11/17/161532 Last Action: Reviewed on 12/08/18231 by ELISA ALVAREZ CHERRIE Y MD Dec 10, 2018 10:10
[2018-12-10 11:00] VITALS: BP 104/49
--- NOTE | 2018-12-10 14:29 | NUR ---
Discharge Note: SWATHI WOODALL [address] [place] [address] Discharge instructions and discharge home medications reviewed with Other facility and a copy given. All questions have been answered and understanding verbalized. The following instructions and handouts were given: ankle fx & rehab Discontinued lines and drains: peripheral line. Patient discharged to Rehab Facility with Ambulance Personnel via Stretcher
== END 2018-12-10 13:55 | DRG 492 ==
LOC: ER 15:28 → 4 NORTH 16:40
PROVIDERS: ADMIT Internal Medicine; ATTEND Internal Medicine
PROC: 0QHJ04Z Insertion of Internal Fixation Device into Right Fibula, Open Approach (ICD-10-PCS; principal; 2018-12-07 19:00)
DX: S82.61XB Displaced fracture of lateral malleolus of right fibula, initial encounter for open fracture type I or II (principal); N17.0 Acute kidney failure with tubular necrosis; Z68.43 Body mass index [BMI] 50.0-59.9, adult; W01.0XXA Fall on same level from slipping, tripping and stumbling without subsequent striking against object, initial encounter; E66.9 Obesity, unspecified; E11.42 Type 2 diabetes mellitus with diabetic polyneuropathy; I10 Essential (primary) hypertension; S93.04XA Dislocation of right ankle joint, initial encounter; X50.1XXA Overexertion from prolonged static or awkward postures, initial encounter; Z82.49 Family history of ischemic heart disease and other diseases of the circulatory system; Z90.49 Acquired absence of other specified parts of digestive tract; Z79.4 Long term (current) use of insulin; Y93.89 Activity, other specified; Y92.89 Other specified places as the place of occurrence of the external cause; Y99.8 Other external cause status
CPT/HCPCS: 36415; 73590; 73600; 80048; 80053; 82306; 82962; 83036; 85007; 85025; 85610; 85730; 90471; 90686; 93005; 96365; 96375; A7015; C1713; J0690; J1100; J1815; J2001; J2270; J2405; J2704; J3010; J7030; 97530; 97535; 99285-25; A4461; G0378